=== PATIENT | female | born 1965 | race Caucasian/White ===

== ENCOUNTER → 2024-03-11 16:47 | Outpatient (REF) | payer BC, SELFPAY | LOC: HWWDC 16:47 | PROVIDERS: ATTENDING PHYSICIAN Obstetrics & Gynecology Gynecology; FAMILY PHYSICIAN Family Medicine | DX: Z12.31 Encounter for screening mammogram for malignant neoplasm of breast (principal) | CPT/HCPCS: 77063; 77067 ==

== ENCOUNTER → 2024-10-09 14:18 | Outpatient (REF) | payer BC, SELFPAY | LOC: HWRAD 14:18 | PROVIDERS: ATTENDING PHYSICIAN Internal Medicine Rheumatology; FAMILY PHYSICIAN Family Medicine | DX: M81.0 Age-related osteoporosis without current pathological fracture (principal); Z13.820 Encounter for screening for osteoporosis | CPT/HCPCS: 77080 ==

== ENCOUNTER → 2025-02-14 16:48 | Outpatient (REF) | payer OTHER, SELFPAY | LOC: RAD 16:48 | PROVIDERS: ATTENDING PHYSICIAN Family Medicine | DX: R10.84 Generalized abdominal pain (principal); R11.0 Nausea; T88.7XXA Unspecified adverse effect of drug or medicament, initial encounter; R17 Unspecified jaundice | CPT/HCPCS: 76700 ==

== ENCOUNTER → 2025-02-21 19:43 | Outpatient (REF) | payer OTHER, SELFPAY | LOC: MRI 3T 19:43 | PROVIDERS: ATTENDING PHYSICIAN Family Medicine | DX: R17 Unspecified jaundice (principal); K76.9 Liver disease, unspecified | CPT/HCPCS: 74183; A9581 ==

== ENCOUNTER 2025-02-25 20:36 | Inpatient (IN) | payer OTHER, SELFPAY ==
[2025-02-25] VITALS (8 sets, daily range): BP systolic 123–166; BP diastolic 24–95; BMI 33.2; BMI 32.7
[2025-02-25 17:05] LABS: % Basophils 0.2 % (0-2); % Eosinophils 0.2 % (0-6); % Immature Granulocytes 1.4 % (0-0.5); % Monocytes 7.4 % (1.7-9.3); % Neutrophils 84.8 % (42.2-75.2); Absolute Immature Granulocytes 0.2 10^3/uL (0-0.05); Absolute Lymphocytes 0.8 10^3/uL (1.2-3.4); Absolute Neutrophils 11.4 10^3/uL (1.4-6.5); Hematocrit 38.3 % (37.0-47.0); Hemoglobin 12.9 g/dL (12.0-16.0); Mean Corp Hgb Conc. 33.7 g/dL (33.0-37.0); Mean Corpuscular Hgb 31.2 pg (27.0-31.0); Mean Corpuscular Volume 92.5 fL (81.0-99.0); Mean Platelet Volume 10.4 fL (7.4-10.4); Nucleated Red Blood Cells % 0 %; Platelet Count 159 10^3/uL (130-400); Red Blood Cell Count 4.14 10^6/uL (4.20-5.40); Red Cell Dist. Width 15.9 % (11.5-14.5); Urine Albumin 2+ (Neg - Trace); Urine Bilirubin 3+ (Negative); Urine Character Clear (Clear); Urine Color Yellow; Urine Glucose Negative (Negative); Urine Ketone Negative (Negative); Urine Leukocyte 1+ (Negative); Urine Nitrite Negative (Negative); Urine Occult Blood Negative (Negative); Urine Urobilinogen 3+ (Neg - 1+); White Blood Cell Count 13.4 10^3/uL (4.8-10.8)
[2025-02-25 17:12] LABS: INR 1.33; PT 16.8 Sec (11.4-14.6)
[2025-02-25 17:13] LABS: APTT 26.6 Sec (23.4-35.0)
[2025-02-25 17:22] LABS: Urine Mucus Few; Urine Red Blood Cell 0-2 /HPF (0-2); Urine Squamous Cell >30 /LPF (Few)
[2025-02-25 17:23] LABS: Urine Bacteria Many (Negative)
[2025-02-25 17:24] LABS: ALT (SGPT) 71 U/L (0-35); AST (SGOT) 139 U/L (14-36); Albumin 2.9 g/dl (3.5-5.0); Alkaline Phosphatase 483 U/L (38-126); Amylase 47 U/L (30-110); Blood Urea Nitrogen 34 mg/dl (7-17); Calcium 8.7 mg/dl (8.4-10.2); Carbon Dioxide 28 mmol/L (22-30); Chloride 99 mmol/L (98-107); Estimated Creatinine Clearance 71 ml/min; Glucose 236 mg/dl (70-99); Lipase 112 U/L (23-300); Potassium 4.8 mmol/L (3.5-5.1); Sodium 134 mmol/L (135-145); Total Bilirubin 13.9 mg/dl (0.2-1.3); Total Protein 6.3 g/dl (6.3-8.2); eGFR > 60.00
--- NOTE | 2025-02-25 18:08 | ED.GENMED ---
Addendum entered and electronically signed by Inderjit Anguiano DO 02/25/25 19:32:
Patient updated on likely diagnosis, PCP updated reviewed at bedside with hospitalist report from radiologist reviewed
Original Note:
History of Present Illness
General
Chief Complaint: Abdominal Pain
Source: patient and records
Exam Limitations: none
Time Seen by Provider: 02/25/25 16:44
History of Present Illness
History of Present Illness:
59-year-old female RA diabetes sent by PCP for jaundice had ultrasound and MRI which are abnormal apparently needs a CT scan sent to the ER for evaluation she has some gnawing upper abdominal pain mild nausea no weight loss that she is gaining some
weight she has lower extremity edema
Past History
Past History
ED Past Surgical History: Appendectomy, Cholecystectomy and Gynecological
Social History
Tobacco: Non-smoker
Alcohol: None
Drug: None
Personal:
Living: with family
Employment: Employed
Review of Systems
Review of Systems
All Other Systems: Not applicable
Constitutional: Reports fatigue; Denies fever or weight loss
EENT: Reports no symptoms
Respiratory: Reports no symptoms
Cardiac: Reports no symptoms
ABD/GI: Reports abdominal pain and nausea
: Reports no symptoms
Musculoskeletal: Reports no symptoms
Skin: Reports other (Jaundice)
Neurological: Reports weakness
Phy Exam
Physical Exam
Physical Exam:
Physical Exam
General: no apparent distress, not acutely ill
Neck: Scleral icterus
Heart: s1/s2 regular rate and rhythm, no murmur. equal radial pulses.
Lungs: no acute respiratory distress. clear bilaterally
Abdomen: Mild tenderness in the epigastrium
Neuro: alert and oriented. no focal neurological deficits
Skin: Yellow
Psychiatric: well kept. interactive and cooperative
Extremities: Edema is
Course
Orders/Labs/Results
Orders:
Orders
04/01/25 16:44
CT Abd/pelvis W Iv Cont Urgent
Comment:
Reason For Exam: jaundice
02/25/25 16:56
Amylase Urgent
Complete Blood Count/With Diff Urgent
Comprehensive Metabolic Panel Urgent
Lipase Urgent
PTT Urgent
Prothrombin Time Urgent
Urinalysis Reflex To Culture Urgent
Date Specimen was Collected: 02/25/25
Time Specimen was Collected: 16:50
Urine Microscopic Reflex Cult Urgent
Urine Culture Urgent
JOANN Source: U
Specimen Description:
Date Specimen was Collected: 02/25/25
Time Specimen was Collected: 16:50
Abnormal Lab Results
02/25/25
16:56
WBC 13.4 H 10^3/uL
(4.8-10.8)
RBC 4.14 L 10^6/uL
(4.20-5.40)
MCH 31.2 H pg
(27.0-31.0)
RDW 15.9 H %
(11.5-14.5)
Abs Immat Gran (auto) 0.2 H 10^3/uL
(0-0.05)
Absolute Neuts (auto) 11.4 H 10^3/uL
(1.4-6.5)
Absolute Lymphs (auto) 0.8 L 10^3/uL
(1.2-3.4)
Absolute Monos (auto) 1.0 H 10^3/uL
(0.1-0.6)
Immature Gran % 1.4 H %
(0-0.5)
Neutrophils % 84.8 H %
(42.2-75.2)
Lymphocytes % 6.0 L %
(20.5-51.1)
PT 16.8 H Sec
(11.4-14.6)
Sodium 134 L mmol/L
(135-145)
BUN 34 H mg/dl
(7-17)
Glucose 236 H mg/dl
(70-99)
Total Bilirubin 13.9 H mg/dl
(0.2-1.3)
AST 139 H U/L
(14-36)
ALT 71 H U/L
(0-35)
Alkaline Phosphatase 483 H U/L
(38-126)
Albumin 2.9 L g/dl
(3.5-5.0)
Urine Bilirubin 3+ A
(Negative)
Urine Urobilinogen 3+ A
(Neg - 1+)
Leukocyte Esterase Rfl 1+ A
(Negative)
Urine Bacteria (Reflex) Many A
(Negative)
Urine Albumin (Reflex) 2+ A
(Neg - Trace)
02/25/25 16:56
02/25/25 16:56
Vital Signs
Initial and Last Documented VS:
Initial Vital Signs
Temp Pulse Resp BP Pulse Ox
98.4 F 94 20 166/91 100
02/25/25 15:58 02/25/25 15:58 02/25/25 15:58 02/25/25 15:58 02/25/25 15:58
Last Documented Vital Signs
Temp Pulse Resp BP Pulse Ox
98.4 F 93 20 124/75 100
02/25/25 15:58 02/25/25 17:30 02/25/25 17:30 02/25/25 17:00 02/25/25 17:30
MDM/Problems Addressed
Differential Diagnosis Includes:
Obstructive jaundice mass malignancy hepatitis
MDM/Problems Addressed:
Jaundice
Chronic conditions affecting care: Previous abdomnial surgery
Acute Exacerbation and/or Progression of Chronic Illness: Previous abdomnial surgery
*Radiology
Radiology exam reviewed: preliminary read by ED provider
*Pulse Oximetry
Patient hypoxic: no
*Critical Care Note
Total Time (30-74mins, 75-104mins- exclusive of procedures): Not Applicable
Data Reviewed
Review of Other/Old Records Reveals: Labs and Radiology Studies
Source: patient
ED Attending Note
-
Portions of this chart may have been created with voice recognition software.� Occasional wrong word or��sound alike� substitutions may have occurred due to the inherent limitations of voice recognition software.
Discharge Plan
Departure
Referrals:
Kanu Hicks, DO [Family Provider] -
Interventions
Interventions:
*Risk Screen - Suicide Last Done: 02/25/25 15:58
*Neglect/Abuse Screening Last Done: 02/25/25 15:58
*ED COVID-19 Vaccine History Last Done: 02/25/25 15:58
UC-Nwpfmi-Yzblzykfmq Assessment Last Done: 02/25/25 17:11
ED- Cardiac Assessment Last Done: 02/25/25 17:11
ED- Pulmonary Assessment Last Done: 02/25/25 17:11
ED-Skin Assessment Last Done: 02/25/25 17:11
Discharge Date and Time
Print Language: MALAGASY
--- NOTE | 2025-02-25 19:33 | HPS.HSE ---
Addendum entered and electronically signed by Dylan Vega MD 02/26/25 06:51:
Depending on what GI says, a diagnostic paracentesis may be pursued for cytology but non-urgent as no signs of acute infection.
Original Note:
Family Physician
-
Family Physician: Kanu Hicks
Chief Complaint
-
Bilateral lower extremity edema
History of Present Illness
This is a 59-year-old female with past medical history of hypertension and rheumatoid arthritis who presents to the emergency department with complaint of bilateral lower extremity edema.
Patient has been having pain and jaundice for about a month now. She has had workup recently with ultrasound and an MRI concerning for intrahepatic mass possibly episode of carcinoma versus cholangiocarcinoma with mass effect obstruction of the
portal vein. She denies abdominal pain nausea or vomiting. She denies any pruritus. She denies fevers or chills. She reports that she suddenly developed swelling in the lower extremities bilaterally over the last 3 to 4 days. Is not associated
with any pain or tingling. She denies any shortness of breath. She denies any orthopnea or PND. She denies any prior history of congestive heart failure.
In the emergency department she was afebrile, blood pressure was normal at 124/50 with a pulse of 80 and she was satting 100% on room air. She does have a white count of 13.4, hemoglobin and platelets were normal. Electrolytes were normal. T
bilirubin is 13, AST 139 ALT 71 and alk phos of 480.
The findings on the CT scan are as follows:
Redemonstration of the known infiltrative mass within the central liver measuring approximately 5.9 x 4.5 cm. There is an additional 2.6 cm lesion in the inferior left hepatic lobe.There is associated occlusion of the left portal vein with resultant
heterogeneous appearance of the liver, likely extensive edema. Findings are overall similar to recent prior MRI and concerning for malignancy such as hepatocellular carcinoma or cholangiocarcinoma. Metastasis are also possibility.
Splenomegaly with small volume ascites, likely sequelae of portal hypertension.
There is mild wall thickening throughout the small bowel which may represent an element of congestive arthropathy or secondary to the ascites.
Medical History
Past Medical History
Past Medical History: Reports HTN
Past Surgical History: Reports None
Social History
Tobacco: Non-smoker
Alcohol: None
Drug: None
Employment: Not Employed
Family History
Family History: Not pertinent
Allergies / Home Medications
Allergies reflects when Allergies were last updated in [facility].
Home Medications with original date entered in [facility]
Allergy/Medication List:
Allergies
Allergy/AdvReac Type Severity Reaction Status Date / Time
No Known Allergies Allergy Verified 02/25/25 16:05
Home Medications
cholecalciferol (vitamin D3) 50 mcg (2,000 unit) tablet (Vitamin D3) 50 mcg PO DAILY 02/25/25
etanercept 50 mg/mL (1 mL) subcutaneous pen injector (Enbrel SureClick) 50 mg SC ZIMMERMAN 02/25/25
losartan 50 mg tablet 50 mg PO DAILY 02/25/25
therapeutic multivitamin 1 tab PO DAILY 02/25/25
Review of Systems
-
History Source: Patient
Constitutional: Reports No Symptoms, See HPI, Not Done and Fever
EENT: Reports No Symptoms
Respiratory: Reports No Symptoms
Cardiac: Reports No Symptoms
Abdomen/GI: Reports Nausea
: Reports No Symptoms
Musculoskeletal: Reports Edema
Skin: Reports No Symptoms
Neurological: Reports No Symptoms
Endocrine: Reports No Symptoms
Hematologic/Lymphatic: Reports No Symptoms
Psych: Reports No Symptoms
Physical Exam
Vital Signs
Vital Signs
Temp Pulse Resp BP Pulse Ox
98.6 F 89 20 124/52 100
02/25/25 18:27 02/25/25 19:00 02/25/25 19:00 02/25/25 19:00 02/25/25 19:00
Physical Exam
General: Well Developed, No Apparent Distress and Comfortable
HEENT: NormoCephalic, Anicteric, Moist mucous membranes, Atraumatic and PERRLA
Respiratory: Clear
Cardiac: S1/S2 and Regular Rhythm
Breast: Deferred by me
GI: Soft, Non Tender, Non Distended and Normal Bowel Sounds
Rectal: Deferred by Provider
Musculoskeletal: No Clubbing, No Cyanosis, Edema, Left Lower Extremity and Edema, Right Lower Extremity
Skin: Warm
Neuro: AO x 3 and Nonfocal/grossly intact
Hematologic/Lymphatic: No Lymphadenopathy
Psych: Calm
Laboratory Results
-
02/25/25 16:56
02/25/25 16:56
Laboratory Results
PT 16.8 Sec (11.4-14.6) H 02/25/25 16:56
INR 1.33 02/25/25 16:56
APTT 26.6 Sec (23.4-35.0) 02/25/25 16:56
Total Bilirubin 13.9 mg/dl (0.2-1.3) H 02/25/25 16:56
AST 139 U/L (14-36) H 02/25/25 16:56
ALT 71 U/L (0-35) H 02/25/25 16:56
Alkaline Phosphatase 483 U/L (38-126) H 02/25/25 16:56
Lipase 112 U/L (23-300) 02/25/25 16:56
Data Reviewed
-
CT Scan: Report Reviewed by me
Ultrasound: Report Reviewed by me
MRI: Report Reviewed by me
Lab Data: Labs Reviewed by me
Old Records: Reviewed
Impression/Plan
-
IMPRESSION:
59-year-old with a few weeks of painless jaundice coming in with acute bilateral lower extremity edema in the setting of workup for the obstructive jaundice showing hepatic mass worrisome for a malignant process. Suspect the obstructive jaundice is
indeed secondary to the hepatic lesions which could be primary liver cancer or metastasis or cholangiocarcinoma. It appears to be mass effect with vascular compression involving the portal vein with extrinsic compression and subsequent portal
hypertension, ascites and splenomegaly. The portal hypertension and of itself will not be enough to explain the bilateral lower extremity edema. Cannot rule out for the compressive effect on IVC hepatic vein. She has no signs of acute infection.
PLAN:
1. Hepatic mass
- admit to med surg
- GI consultation
- check AFB, CEA and Ca19-9, total protein and inr
- diet as tolerated for now
- trend lfts
- may need EGD/EUS, GI consultation
2. Bilateral lower extremity edema - Portal hypertension and ascites but no cirrhosis suggests portal vein extrinsic obstruction which was seen on CT. 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
- check suha le u/s
- check bnp
- echo
- if no evidence of venous compression, will start lasix 20mg daily
- treat underlying malignancy
3. HTN
- continue losartan for now
DVT PPX - lovenox sq
Code status - Full Code
[2025-02-25 19:57] LABS: Direct Bilirubin 11.1 mg/dl (0.0-0.4)
[2025-02-25 21:51] LABS: Glucose - Point of Care 147 mg/dl (70-99)
--- NOTE | 2025-02-25 22:30 | W.PN.UPDATE ---
Update Note
Progress Note Update
sliding scale and hgba1c in am
--- NOTE | 2025-02-26 00:43 | PTCARENOTE ---
Patient transferred from the ED. Patient's gait was steady while ambulating. Patient's vitals were stable. Patient stated she was not experiencing any pain. Patient went down for an Ultra Sound of her left leg. Patient did state she was a diabetic.
She does not take any medication to control the issue. It is controlled by diet. [employer]INTENANCE WORK[employer] was notified. MAINTENAN[employer] WORKER [employer] ordered sliding scale insulin and PRN meds. A1C was ordered for the morning. Patient's call mehta is with in reach. Plan of care is ongoing.
[2025-02-26 05:22] VITALS: BMI 32.7
[2025-02-26 06:40] LABS: INR 1.34; PT 16.9 Sec (11.4-14.6)
[2025-02-26 06:49] LABS: Ammonia 26 umol/L (9-30)
[2025-02-26 07:17] LABS: Hematocrit 34.4 % (37.0-47.0); Hemoglobin 12.3 g/dL (12.0-16.0); Mean Corp Hgb Conc. 35.8 g/dL (33.0-37.0); Mean Corpuscular Hgb 31.8 pg (27.0-31.0); Mean Corpuscular Volume 88.9 fL (81.0-99.0); Mean Platelet Volume 10.8 fL (7.4-10.4); Platelet Count 125 10^3/uL (130-400); Red Blood Cell Count 3.87 10^6/uL (4.20-5.40); Red Cell Dist. Width 15.7 % (11.5-14.5); White Blood Cell Count 12.6 10^3/uL (4.8-10.8)
[2025-02-26 07:23] VITALS: BP 143/80
[2025-02-26] MEDS: COZAAR 50 MG PO (07:32)
[2025-02-26 07:46] LABS: Glucose - Point of Care 178 mg/dl (70-99)
[2025-02-26] MEDS: NOVOLOG FLEXPEN-LOW RESISTANCE 1 UNITS SC (08:26)
--- NOTE | 2025-02-26 09:10 | CON.GI ---
Addendum entered and electronically signed by Marizol Maldonado DO 02/26/25 10:55:
The patient was seen and examined by me independently in collaboration with the nurse practitioner.
Past medical history/social history/medications/allergies/family history reviewed.
Lab data and imaging data reviewed.
Rianna Rock is a 59-year-old female past medical history of diabetes and rheumatoid arthritis who presents with 1 month of painless jaundice and new onset lower extremity edema and ascites. Patient reports being in her normal state of
month prior to a month ago, started noticing dark urine and brandie colored stools. Her primary care provider has been working this up over the last few weeks, found to have elevated liver enzymes and concern for liver mass, HCC versus
cholangiocarcinoma with occlusion of the left portal vein and new ascites.
Reviewed imaging with Dr. Munoz-- unfortunately, there is no evidence of biliary ductal dilation on imaging, hyperbilirubinemia is 2/2 infiltrative mass/tumor burden, so ERCP is not an option. Can discuss with IR if there is anything to target for
PTBD, however, suspect it will be same scenario.
Recommendations:
-IR for paracentesis, r/o malignant ascites
-once fluid has been drained, will see if IR can then plan to percutaneous biopsy vs. transjugular approach targeting central mass
Original Note:
Consultation
-
Date/Time Consultation Requested: 02/25/25 2200
Date/Time Consultation Performed: 02/26/25 0910
Requesting Provider: kendra Rodriguez MD
Performing Provider: DAI Douglas, Leta Maldonado DO
Reason for Consultation: LE edema, jaundice
Medical History
Chief Complaint / HPI
History of Present Illness:
Pt is a 59yo with hx HTN, hypercholesterolemia, NIDDM (recently stopped Rybelsus with onset of symptoms) , RA (prior Leflunomide stopped 1 month ago with onset of symptoms and current Enbrel) with onset nausea/abdominal pain followed by jaundice
then lower ext edema. . She had work up with PCP and sent to with abnormal imaging. 02/14 US with multiple liver lesions concern for mets. main and right portal vein patent, left portal vein flow not clear. thrombosis not excluded. She
proceeded for MRI abdomen with hypoenhancement of central liver concern for malignant process with compression of left portal vein with no flow. celiac chain adenopathy and 3 small hypervascular foci right hepatic lobe, hemangioma, arterioportal
shunts or HCC, no duct dilation. Pt also completed CT on admission with concern for infiltrative liver mass with occlusion of left portal vein, splenomegaly, small volume ascites with portal HTN, SB thickening with congestive arthropathy or
ascites. Findings are overall similar to recent prior MRI and concerning for malignancy such as hepatocellular carcinoma or cholangiocarcinoma. Metastasis are also possibility. On admission labs notable for WBC 12.6, hbg 12.3, platelets 125, INR
1.34, Na 133,creat 0.6, glucose 192, bili 15,6, d bili 13, AST 167, ALT 81, alk phos 495 albumin 3.1. Tumor marker- AFP, CEA, and TSH pending.
In review with patient she admits to nausea and some upper abdominal pain. She denies odynophagia, dysphagia, GERD, vomiting, diarrhea, constipation or rectal bleeding. No prior EGD or colonoscopy. neg Cologuard 2 years ago. No hx
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
02/14/25 OP labs with WBC 9.6, hbg 13.2, hct 39.2, platelets 152, glucose 162, BUN 12, creat 0.56, Na 140, K 4.7, cl 103, Co2 17, albumin 3,6, bili 5,6, AST 94, ALT 40, alk phos 417,Amylase 52, lipase 25 - liver serology requested but not
completed insufficient specimen
Past Medical History
Past Medical History: HTN, Hypercholesterolemia, NIDDM and Other (RA)
Social History
Tobacco: Non-Smoker
Alcohol: None
Drug: None
Personal:
Living: With Family
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
Family History
Family History: Other (no family hx liver issues, GI cancers )
Allergies / Home Medications
Allergy/AdvReac Type Severity Reaction Status Date / Time
No Known Allergies Allergy Verified 02/25/25 16:05
�Medication �Instructions �Recorded
cholecalciferol (vitamin D3) 50 50 mcg PO DAILY Supplement 02/25/25
mcg (2,000 unit) tablet (Vitamin
D3)
etanercept 50 mg/mL (1 mL) 50 mg SC ZIMMERMAN TNF INH 02/25/25
subcutaneous pen injector (Enbrel
SureClick)
losartan 50 mg tablet 50 mg PO DAILY Blood Pressure 02/25/25
therapeutic multivitamin 1 tab PO DAILY Supplement 02/25/25
Review of Systems
-
History Source: Patient
Constitutional: Reports Other (wt changes -- 40 lbs loss with Rybelsus then recent gain with LE edema )
EENT: Reports No Symptoms
Respiratory: Reports No Symptoms
Abdomen/GI: Reports Abdominal Pain, Nausea and Other (brandie colored stools )
: Reports Dark Urine
Musculoskeletal: Reports Joint Pain (with hx RA)
Skin: Reports Itching and Other (change in skin color )
Neurological: Reports No Symptoms
Endocrine: Reports No Symptoms
Hematologic/Lymphatic: Reports No Symptoms
Vital Signs
Temp Pulse Resp BP Pulse Ox
98.0 F 81 16 143/80 99
02/26/25 07:23 02/26/25 07:32 02/26/25 07:23 02/26/25 07:32 02/26/25 07:23
Physical Exam
Exam
General: Well Developed, Well Nourished and No Apparent Distress
HEENT: Other (marked jaundice with icteric sclera )
Respiratory: Clear
Cardiac: Regular Rhythm and Peripheral Edema
GI: Soft, Non Tender (upper abdominal fullness mid abdomen ) and Non Distended
Musculoskeletal: No Clubbing and No Cyanosis
Skin: Warm, Dry and Other (marked LE edema )
Neuro: Awake, Alert and AO x 3
Psych: Calm
Results
WBC 12.6 10^3/uL (4.8-10.8) H 02/26/25 06:13
Hgb 12.3 g/dL (12.0-16.0) 02/26/25 06:13
Hct 34.4 % (37.0-47.0) L 02/26/25 06:13
MCV 88.9 fL (81.0-99.0) 02/26/25 06:13
Plt Count 125 10^3/uL (130-400) L D 02/26/25 06:13
Absolute Neuts (auto) 11.4 10^3/uL (1.4-6.5) H 02/25/25 16:56
PT 16.9 Sec (11.4-14.6) H 02/26/25 06:13
INR 1.34 02/26/25 06:13
APTT 26.6 Sec (23.4-35.0) 02/25/25 16:56
Sodium 134 mmol/L (135-145) L 02/25/25 16:56
Potassium 4.8 mmol/L (3.5-5.1) 02/25/25 16:56
Chloride 99 mmol/L (98-107) 02/25/25 16:56
Carbon Dioxide 28 mmol/L (22-30) 02/25/25 16:56
BUN 34 mg/dl (7-17) H 02/25/25 16:56
Creatinine 0.9 mg/dL (0.6-1.0) 02/25/25 16:56
Calcium 8.7 mg/dl (8.4-10.2) 02/25/25 16:56
Total Bilirubin 13.9 mg/dl (0.2-1.3) H 02/25/25 16:56
AST 139 U/L (14-36) H 02/25/25 16:56
ALT 71 U/L (0-35) H 02/25/25 16:56
Alkaline Phosphatase 483 U/L (38-126) H 02/25/25 16:56
Amylase 47 U/L (30-110) 02/25/25 16:56
Lipase 112 U/L (23-300) 02/25/25 16:56
Diagnostic Image Results:
02/14/25 US abdomen
Heterogeneous liver parenchyma with multiple questioned intraparenchymal liver lesions. Findings raise the possibility for hepatic metastatic disease. Heterogeneous echotexture secondary to chronic hepatocellular dysfunction would be an alternative
consideration. Recommend a follow-up abdominal MRI without and with intravenous contrast for further evaluation.
The main portal vein and right portal vein are patent. Flow is not clearly identified in the left portal vein. While this could be technique related or artifactual, thrombus is not excluded and further evaluation on follow-up cross-sectional imaging
is recommended.
02/21/25 MR abdomen with and without
Poorly defined relatively hypoenhancing region in the central portion of liver; this extends into the upper portion of the caudate lobe. This is worrisome for a malignant process. This abnormality may be causing extrinsic compression of the left
portal vein, which contains no flow. The left portal vein occlusion results in extensive edema in the left hepatic lobe as well as findings of portal venous hypertension. Dynamic CT imaging of the abdomen recommended for further evaluation of the
suspected hepatic mass.
Mild celiac chain adenopathy
3 small hypervascular foci in the right hepatic lobe. Possible etiologies include flash filling benign hemangiomas, arterioportal shunts, or hepatocellular carcinoma. Please correlate with serum alpha-fetoprotein value. Consider follow-up MRI in 6
months to reevaluate these foci.
No biliary ductal dilatation identified
02/25/25 CT Abd/pelvis W Iv Cont
Redemonstration of the known infiltrative mass within the central liver measuring approximately 5.9 x 4.5 cm. There is an additional 2.6 cm lesion in the inferior left hepatic lobe.There is associated occlusion of the left portal vein with resultant
heterogeneous appearance of the liver, likely extensive edema. Findings are overall similar to recent prior MRI and concerning for malignancy such as hepatocellular carcinoma or cholangiocarcinoma. Metastasis are also possibility.
Splenomegaly with small volume ascites, likely sequelae of portal hypertension.
There is mild wall thickening throughout the small bowel which may represent an element of congestive arthropathy or secondary to the ascites.
02/25/25 US Periph Venous LOWER Ext LT
No sonographic evidence for LEFT lower extremity deep venous thrombosis.
Prior GI Procedures:
EGD: none
Colonoscopy: none
neg cologuard 2 years ago
Assessment / Plan
-
Pt is a 59yo with hx HTN, hypercholesterolemia, NIDDM (recently stopped Rybelsus with onset of symptoms) , RA (prior Leflunomide stopped 1 month ago with onset of symptoms and current Enbrel) with onset nausea/abdominal pain followed by jaundice
then lower ext edema. She had work up with PCP and sent to with abnormal imaging. 02/14 US with multiple liver lesions concern for mets. main and right portal vein patent, left portal vein flow not clear. thrombosis not excluded. She proceeded
for MRI abdomen with hypoenhancement of central liver concern for malignant process with compression of left portal vein with no flow. celiac chain adenopathy and 3 small hypervascular foci right hepatic lobe, hemangioma, arterioportal shunts or
HCC, no duct dilation. Pt also completed CT on admission with concern for infiltrative liver mass with occlusion of left portal vein, splenomegaly, small volume ascites with portal HTN, SB thickening with congestive arthropathy or ascites.
Findings are overall similar to recent prior MRI and concerning for malignancy such as hepatocellular carcinoma or cholangiocarcinoma. Metastasis are also possibility. On admission labs notable for WBC 12.6, hbg 12.3, platelets 125, INR 1.34, Na
133,creat 0.6, glucose 192, bili 15.6, d bili 13, AST 167, ALT 81, alk phos 495 albumin 3.1. Tumor marker- AFP, CEA, and TSH pending.
-new onset of abdominal pain, nausea, jaundice then LE swelling over last month
-elevated LFT's
-abnormal imaging with small amount ascites, concern for left portal vein occlusion, liver mass with possible HCC, or cholangio with mets
-LE swelling
-hypoalbuminemia
other med problems:
-NIDDM with recent Rybelsus use
-RA with recent prior Leflunomide stopped 1 month ago with onset of symptoms and current Enbrel use
-HTN
-hypercholesterolemia
PLAN:
etiology of symptoms related to infiltrative process such as HCC/cholangio with concern for left portal vein occlusion vs other
pt noted with recent med changes- stopped Rybelsus and Leflunomide(hx LFT elevation/rare liver injury) with onset of symptoms
I reviewed with radiology for para- small volume may be possible
I also reviewed with radiology for liver biopsy-- await AFP first, would need ascites drained prior to perc bx, central mass would be amendable to transjugular biopsy.
will discuss options with Dr. Munoz and Dr. Maldonado if EUS/bx is options
trend labs
hepatitis C pending, add hepatitis B serology
AFP, CEA pending
cont diet for now pending plan
-
-
Thank you for consultation and allowing me to participate in the patient's care. Please call the forest and conservation worker GI physician during the after hours with any questions or concerns.
[2025-02-26 09:57] LABS: ALT (SGPT) 81 U/L (0-35); AST (SGOT) 167 U/L (14-36); Albumin 3.1 g/dl (3.5-5.0); Alkaline Phosphatase 495 U/L (38-126); Blood Urea Nitrogen 32 mg/dl (7-17); Calcium 8.7 mg/dl (8.4-10.2); Carbon Dioxide 24 mmol/L (22-30); Chloride 100 mmol/L (98-107); Estimated Creatinine Clearance 106 ml/min; Glucose 192 mg/dl (70-99); Magnesium 2.2 mg/dl (1.6-2.3); NT-proBNP 327 pg/ml; Potassium 4.5 mmol/L (3.5-5.1); Sodium 133 mmol/L (135-145); Total Bilirubin 15.6 mg/dl (0.2-1.3); Total Protein 6.6 g/dl (6.3-8.2); eGFR > 60.00
[2025-02-26 10:13] LABS: Glycohemoglobin (HgbA1c) 5.5 % (4.0-5.6)
[2025-02-26 10:50] LABS: AFP Male/Tumor Marker 90.9 ng/ml; TSH 3.36 uIU/ml (0.47-4.68)
[2025-02-26 11:26] LABS: Glucose - Point of Care 306 mg/dl (70-99)
--- NOTE | 2025-02-26 12:25 | W.PN.UPDATE ---
Addendum entered and electronically signed by Marizol Maldonado DO 02/26/25 13:47:
Plan as per below. GI will sign off. Please notify us if IR is unable to obtain biopsy to confirm dx.
Original Note:
Update Note
Progress Note Update
updated patient, family and Dr. Carrillo. Plan for para and percutaneous biopsy 02/27 with IR as reviewed with Dr. Goins. If unable to biopsy can attempt endoscopy biopsy later in week as schedule allows. Consider oncology evaluation. All
questions answered.
[2025-02-26] MEDS: NOVOLOG FLEXPEN-LOW RESISTANCE 4 UNITS SC (12:32)
--- NOTE | 2025-02-26 12:52 | W.PN.HOSP.TC ---
Today's Communication/Plan
-
Paracentesis and liver biopsy on 02/27
N.p.o. after midnight
Trend LFTs, coags, temperature curve
Encourage leg elevation
Oncology consult
Assessment / Plan
Assessment / Plan
#Obstructive jaundice
#Hepatic mass
-Concern for neoplastic biliary obstruction; possibly HCC, cholangiocarcinoma, pancreatic cancer, colon cancer
-Was started on leflunomide for her RA, which has association with acute liver failure though do not suspect she has KENYA now
-Presented with scleral icterus and jaundice; T. bili 15.6, T. bili 13, ALP 495, AST 161, ALT 81, INR 1.34, albumin 3.1
-Had recent outpatient ultrasound and MRCP that demonstrated concerning findings for obstruction/malignancy
-CT A/P here showed infiltrative mass in the central liver, 5.9 x 4.5 cm with additional lesion in the inferior left hepatic lobe, splenomegaly, small ascites
-Tumor markers including AFP, CEA, CA 19-9 were sent off after admission
-Afebrile, hemodynamically stable; lower concern for cholangitis
Plan
-Planning for paracentesis and percutaneous biopsy on 02/27 with IR (if unsuccessful attempt EUS Monday)
-Follow-up AFP, CEA, CA 19-9 levels
-Trend LFTs, coags, CBC, temperature curve
-Oncology consult
#Bilateral lower extremity edema
#Left portal vein compression
-Has bilateral lower extremity edema secondary to extrinsic compression of left portal vein by liver mass
-Lower extremity ultrasound negative for DVTs; echocardiogram without signs of cardiomyopathy
-Suspect that diuresis would not significantly improve her edema at this point
-Will need primary intervention into her liver mass once etiology is known
-Encourage compression stockings and leg elevation while resting
#Rheumatoid arthritis
-Home regimen includes etanercept; per GI was recently switched to leflunomide
-No known associations such as CAD or interstitial lung disease
-No evidence of RA flare at this time
#Primary hypertension
-No known history of hypertensive systemic disease
-Home regimen includes losartan 50 mg daily
-Blood pressure currently adequate
-Will continue to monitor
DVT prophylaxis: SCDs, avoid chemical AC with procedures planned 02/27
Diet: Regular, n.p.o. after midnight
CODE STATUS: Full code
Anticipated Discharge: > 48 hours
Subjective/Interval History
-
Date of Service: February 26, 2025
Objective Data
-
Labs:
Laboratory Results
02/26/25 02/26/25
06:13 08:21
WBC 12.6 H
Hgb 12.3
Hct 34.4 L
Plt Count 125 L D
PT 16.9 H
INR 1.34
Sodium 133 L
Potassium 4.5
Chloride 100
Carbon Dioxide 24
BUN 32 H
Creatinine 0.6
Glucose 192 H
Calcium 8.7
Total Bilirubin 15.6 H
AST 167 H
ALT 81 H
Alkaline Phosphatase 495 H
Vital Signs:
Vital Signs
Temp Pulse Resp BP Pulse Ox
98.0 F 81 16 143/80 99
02/26/25 07:23 02/26/25 07:32 02/26/25 07:23 02/26/25 07:32 02/26/25 07:23
I&O
02/25/25 02/26/25 02/27/25
06:59 06:59 06:59
Intake Total 720 / 720
Balance 720 / 720
[2025-02-26 12:58] LABS: CEA 3.86 ng/ml
--- NOTE | 2025-02-26 13:22 | CM ---
Patient seen at bedside
IA completed
Lives in 2 story home with , 1 step to enter, flight to second floor
Denies DME
PLOF: Independent
Denies VN/REHAB
PCP: Kanu Hicks
Pharmacy: [address], [place]
PLAN: home, currently no needs
[2025-02-26 14:51] VITALS: BP 137/86
[2025-02-26 16:30] LABS: Glucose - Point of Care 219 mg/dl (70-99)
[2025-02-26] MEDS: NOVOLOG FLEXPEN-LOW RESISTANCE 2 UNITS SC (18:12)
[2025-02-26 21:37] LABS: Glucose - Point of Care 191 mg/dl (70-99)
[2025-02-26 23:00] VITALS: BP 103/76
[2025-02-27 07:26] VITALS: BP 113/70
[2025-02-27] MEDS: COZAAR 50 MG PO (08:04)
[2025-02-27 08:05] LABS: INR 1.36; PT 17.3 Sec (11.4-14.6)
[2025-02-27 08:06] LABS: APTT 29.7 Sec (23.4-35.0)
[2025-02-27 08:29] LABS: % Basophils 0.5 % (0-2); % Eosinophils 0.9 % (0-6); % Immature Granulocytes 1.9 % (0-0.5); % Lymphocytes 8.4 % (20.5-51.1); % Monocytes 7.1 % (1.7-9.3); % Neutrophils 81.2 % (42.2-75.2); Absolute Basophils 0.1 10^3/uL (0-0.2); Absolute Eosinophils 0.1 10^3/uL (0-0.7); Absolute Immature Granulocytes 0.3 10^3/uL (0-0.05); Absolute Lymphocytes 1.4 10^3/uL (1.2-3.4); Absolute Monocytes 1.1 10^3/uL (0.1-0.6); Hematocrit 40.8 % (37.0-47.0); Hemoglobin 14.3 g/dL (12.0-16.0); Mean Corpuscular Hgb 32.1 pg (27.0-31.0); Mean Corpuscular Volume 91.7 fL (81.0-99.0); Mean Platelet Volume 10.9 fL (7.4-10.4); Nucleated Red Blood Cells % 0 %; Platelet Count 169 10^3/uL (130-400); Red Blood Cell Count 4.45 10^6/uL (4.20-5.40); Red Cell Dist. Width 16.4 % (11.5-14.5)
[2025-02-27 08:41] LABS: ALT (SGPT) 98 U/L (0-35); AST (SGOT) 209 U/L (14-36); Albumin 3.2 g/dl (3.5-5.0); Alkaline Phosphatase 545 U/L (38-126); Blood Urea Nitrogen 36 mg/dl (7-17); Carbon Dioxide 25 mmol/L (22-30); Chloride 101 mmol/L (98-107); Direct Bilirubin 14.6 mg/dl (0.0-0.4); Estimated Creatinine Clearance 79 ml/min; Glucose 142 mg/dl (70-99); Potassium 4.3 mmol/L (3.5-5.1); Sodium 135 mmol/L (135-145); Total Bilirubin 17.4 mg/dl (0.2-1.3); eGFR > 60.00
[2025-02-27 09:15] LABS: Glucose - Point of Care 147 mg/dl (70-99)
[2025-02-27] MEDS: NOVOLOG FLEXPEN-LOW RESISTANCE SC ×2 (10:33→14:31)
--- NOTE | 2025-02-27 10:34 | CON.ONC ---
Impression
Impression
59 Year old female
Obstructive Jaundice
Hepatic Mass
BL LE Edema
Left Portal Vein Compression
Plan
Plan
- US/MRI show hepatic mass with left portal vein compression. Further imaging CT Abd/Pelvis demonstrates infiltrative mass within the central liver measuring approximately 5.9 x 4.5 cm & additional 2.6cm lesions in inf. L hepatic lobe with
associated occlusion of L portal vein concerning for HCC vs. Cholangiocarcinoma.
- Pt to receive paracentesis with fluid analysis, will follow.
- Percutaneous liver bx if possible today. If unsuccessful will try for EUS later in the week
- CEA 3.86, AFP elevated 90.9
- Tbili 17.4, direct 14.6, AST/ALT 209/98, ALP 545
- Pending hepatitis panel, will follow
- Will await path results and fluid analysis. Leflunomide is associated with reactivation of Hepatitis B/hepatocellular injury, which could be contributing, however greater concern is for malignant process given imaging findings of portal vein
compression and obstructive pattern LFTs. May benefit from additional CT imaging of the chest in addition to abd/pelvis for extrahepatic staging.
Patient History
History of Present Illness
59 year old woman with a past medical history significant for hypertension, rheumatoid arthritis, and NIDDM who presented to the ED for complaints of LE swelling and jaundice.
One month ago she began to notice epigastric pain which was new. She had recently started on Leflunomide for her RA and the sx were thought to be due to this drug, so she stopped taking it. However, she continued to have Epigastric pain. She had
also recently been started on Rybelsus by her PCP for her NIDDM which can also cause epigastric pain, nausea, pancreatitis and so she stopped this as well. Her epigastric pain did not improve and she began to develop jaundice. Blood work showed
elevated LFTs above prior, despite stopping Leflunomide. She was sent for an US of the abdomen which showed Heterogeneous liver parenchyma with multiple questioned intraparenchymal liver lesions. Further imaging with MRI was done which showed 1)
Poorly defined relatively hypoenhancing region in the central portion of liver extending into the upper portion of the caudate lobe, worrisome for a malignant process and 2) extrinsic compression of the left portal vein. She soon developed LE
swelling and was advised to come to the ED by her PCP. She also endorses recent pale stools and dark urine during this time. She denies any fevers, chills, vomiting, itching, headache, weight loss, night sweats during this time. She is a never
smoker who drinks alcohol occasionally. She has never had Hepatitis B infection and has been screened for hepatitis C and has received a hepatitis B vaccine. She has no history of HIV or family history of cancer.
At present she is feeling intermittently nauseous, and bloated, but without significant epigastric pain.
Past-Medical/Surgical History
Past Medical History: Hypertension, NIDDM, Rheumatoid Arthritis
Past Surgical History: , Appendectomy, Cholecystectomy
Patient Medication
�Medication �Instructions �Recorded �Confirmed �Last Taken �Type
cholecalciferol (vitamin D3) 50 50 mcg PO DAILY Supplement 02/25/25 02/25/25 02/24/25 History
mcg (2,000 unit) tablet (Vitamin
D3)
etanercept 50 mg/mL (1 mL) 50 mg SC ZIMMERMAN TNF INH 02/25/25 02/25/25 02/23/25 History
subcutaneous pen injector (Enbrel
SureClick)
losartan 50 mg tablet 50 mg PO DAILY Blood Pressure 02/25/25 02/25/25 02/24/25 History
therapeutic multivitamin 1 tab PO DAILY Supplement 02/25/25 02/25/25 02/24/25 History
Active Medications
Generic Name Dose Route Start Last Admin
Trade Name Freq PRN Reason Stop Dose Admin
Acetaminophen 650 mg 02/25/25 21:34
Acetaminophen 325 Mg Tablet PO 03/25/25 21:33
Q4HPRN PRN
mild pain/FLORES/temp> 100.4F
Bisacodyl 10 mg 02/25/25 21:34
Bisacodyl 10 Mg Rectal Suppository RECTAL 03/25/25 21:33
[id number] PRN
constipation
Dextrose 12.5 grams 02/25/25 23:00
Dextrose 50% (0.5 Grams/Ml) 50 Ml Syringe IV 03/25/25 22:59
[id number] PRN
hypoglycemia
Protocol
Glucagon 1 mg 02/25/25 23:00
Glucagon 1 Mg Vial IM 03/25/25 22:59
PRN PRN
hypoglycemia - no IV access
Protocol
Insulin Aspart 0 units 02/27/25 12:00
Insulin Aspart Low Resistance 300 Units/3 Ml Pen.Injctr SC 03/27/25 11:59
Q6 DARRYL
Protocol
Losartan Potassium 50 mg 02/26/25 08:00 02/27/25 08:04
Losartan 50 Mg Tablet PO 03/26/25 07:59 50 mg
DAILY DARRYL Administration
Ondansetron HCl 4 mg 02/25/25 21:34
Ondansetron 4 Mg/2 Ml Vial IV 03/25/25 21:33
Q6HPRN PRN
nausea and vomiting
Oxycodone HCl 5 mg 02/25/25 21:34
Oxycodone 5 Mg Regular Release Tablet PO 03/11/25 21:33
Q4HPRN PRN
moderate pain
Polyethylene Glycol 17 grams 02/25/25 21:34
Polyethylene Glycol Powder 17 Grams Packet PO 03/25/25 21:33
DAILYPRN PRN
constipation
Senna/Docusate Sodium 1 tablet 02/25/25 21:34
Docusate W/Senna (Tianna-Colace) Tablet PO 03/25/25 21:33
BIDPRN PRN
constipation
Sodium Chloride 0 flush 02/25/25 22:00
Sodium Chloride 0.9% (Flush) Syringe IV 04/29/25 21:59
PER PROTOCOL DARRYL
Review of Systems
-
History Source: Patient
Constitutional: Denies Fever, Weight Loss, Fatigue, Night Sweats or Chills
EENT: Reports No Symptoms
Respiratory: Reports No Symptoms
Cardiac: Reports No Symptoms
GI: Reports Abdominal Pain, Nausea, Bloated and Other (Pale stools); Denies Vomiting or Diarrhea
Breast: Reports No Symptoms
: Reports Dark Urine; Denies Dysuria or Flank Pain
Musculoskeletal: Reports No Symptoms
Skin: Reports Other (Jaundice); Denies Itching or Rash
Neuro: Reports No Symptoms
Endocrine: Reports No Symptoms
Hematologic/Lymphatic: Reports No Symptoms
Allergy / Immunology: Reports No Symptoms
Psych: Reports No Symptoms
Physical Exam
-
General: Well Developed, Well Nourished and No Apparent Distress
HEENT: Jaundice and Moist Mucous Membranes
Cardiology: Normal Sinus Rhythm, S1 and S2; Negative Murmur or Rub/Gallop
Pulmonary: Clear; Negative Wheezes, Rales or Rhonchi
GI: Soft, Normal Bowel Sounds and Other (Mild epigastric tenderness)
Genito-Urinary: Deferred by me
Musculoskeletal: Edema, Right Lower Extrem (trace pitting edema ) and Edema, Left Lower Extrem (trace pitting edema )
Extremities: Edema
Neurology: Non Focal
Skin: Warm, Dry and IV Access / Catheter Site
Hematologic / Lymphatic: No Lymphadenopathy and No Petechiae
Psych: Calm
Labs
Lab Results
WBC 16.0 10^3/uL (4.8-10.8) H 02/27/25 07:20
RBC 4.45 10^6/uL (4.20-5.40) 02/27/25 07:20
Hgb 14.3 g/dL (12.0-16.0) 02/27/25 07:20
Hct 40.8 % (37.0-47.0) 02/27/25 07:20
MCV 91.7 fL (81.0-99.0) 02/27/25 07:20
MCH 32.1 pg (27.0-31.0) H 02/27/25 07:20
MCHC 35.0 g/dL (33.0-37.0) 02/27/25 07:20
RDW 16.4 % (11.5-14.5) H 02/27/25 07:20
Plt Count 169 10^3/uL (130-400) D 02/27/25 07:20
MPV 10.9 fL (7.4-10.4) H 02/27/25 07:20
Abs Immat Gran (auto) 0.3 10^3/uL (0-0.05) H 02/27/25 07:20
Absolute Neuts (auto) 13.0 10^3/uL (1.4-6.5) H 02/27/25 07:20
Absolute Lymphs (auto) 1.4 10^3/uL (1.2-3.4) 02/27/25 07:20
Absolute Monos (auto) 1.1 10^3/uL (0.1-0.6) H 02/27/25 07:20
Absolute Eos (auto) 0.1 10^3/uL (0-0.7) 02/27/25 07:20
Absolute Basos (auto) 0.1 10^3/uL (0-0.2) 02/27/25 07:20
Immature Gran % 1.9 % (0-0.5) H 02/27/25 07:20
Neutrophils % 81.2 % (42.2-75.2) H 02/27/25 07:20
Lymphocytes % 8.4 % (20.5-51.1) L 02/27/25 07:20
Monocytes % 7.1 % (1.7-9.3) 02/27/25 07:20
Eosinophils % 0.9 % (0-6) 02/27/25 07:20
Basophils % 0.5 % (0-2) 02/27/25 07:20
Creatinine 0.8 mg/dL (0.6-1.0) 02/27/25 07:20
Vital Signs
Vital Signs
Temp Pulse Resp BP Pulse Ox
97.4 F 110 18 113/70 99
02/27/25 07:26 02/27/25 08:04 02/27/25 07:26 02/27/25 08:04 02/27/25 07:26
--- NOTE | 2025-02-27 11:39 | W.PN.HOSP.TC ---
Addendum entered and electronically signed by Arya Carrillo DO 02/28/25 13:13:
CDI: Mild hyponatremia, no clinical significance
Original Note:
Today's Communication/Plan
-
Plan for paracentesis and IR biopsy
Follow-up hepatitis panel
Trend LFTs
Resume diet after procedures
CT chest without contrast
Supportive measures for leg edema
Assessment / Plan
Assessment / Plan
#Obstructive jaundice
#Hepatic mass
-Concern for neoplastic biliary obstruction; likely hepatocellular carcinoma with AFP levels very high, CEA near ULN
-Presented with scleral icterus and jaundice; T. bili 15.6, T. bili 13, ALP 495, AST 161, ALT 81, INR 1.34, albumin 3.1
-Had recent outpatient ultrasound and MRCP that demonstrated concerning findings for obstruction/malignancy
-CT A/P with infiltrative mass of central liver, 5.9 x 4.5 cm, with lesion in the inferior left hepatic lobe, splenomegaly, small ascites
-Afebrile, hemodynamically stable; lower concern for cholangitis at this time
Plan
-Planning for paracentesis and percutaneous biopsy today
-May need EUS with biopsy on 02/28 if IR attempt unsuccessful today
-Follow-up hepatitis panel, check for reactivation of hep B on leflunomide
-Trend LFTs, coags, CBC, temperature curve
-May need to consider XRT, TACE to relieve obstruction
-Will need formal staging with CT Chest, eventual PET/CT
#Bilateral lower extremity edema
#Left portal vein compression
-Has bilateral lower extremity edema secondary to extrinsic compression of left portal vein by liver mass
-Lower extremity ultrasound negative for DVTs; echocardiogram without signs of cardiomyopathy
-Suspect that diuresis would not significantly improve her edema at this point
-Will need primary intervention into her liver mass once etiology is known
-Encourage compression stockings and leg elevation while resting
#Rheumatoid arthritis
-Home regimen includes etanercept; per GI was recently switched to leflunomide
-No known associations such as CAD or interstitial lung disease
-No evidence of RA flare at this time
#Primary hypertension
-No known history of hypertensive systemic disease
-Home regimen includes losartan 50 mg daily
-Blood pressure currently adequate
-Will continue to monitor
DVT prophylaxis: SCDs, avoid chemical AC with procedures planned 02/27
Diet: N.p.o. for paracentesis and biopsy; full diet otherwise
CODE STATUS: Full code
Anticipated Discharge: > 48 hours
Subjective/Interval History
-
Date of Service: February 27, 2025
Seen and examined at the bedside. No acute events reported overnight. AFVSS this morning
LFTs uptrending with T. bili 17, D. bili 14.9, slowly uptrending transaminases and ALP, albumin 3.2 and INR stable
Patient denies any acute complaints this morning including abdomen pain, fevers or chills.
Objective Data
-
Labs:
Laboratory Results
02/27/25
07:20
WBC 16.0 H
Hgb 14.3
Hct 40.8
Plt Count 169 D
PT 17.3 H
INR 1.36
APTT 29.7
Sodium 135
Potassium 4.3
Chloride 101
Carbon Dioxide 25
BUN 36 H
Creatinine 0.8
Glucose 142 H
Calcium 9.0
Total Bilirubin 17.4 H
AST 209 H
ALT 98 H
Alkaline Phosphatase 545 H
Vital Signs:
Vital Signs
Temp Pulse Resp BP Pulse Ox
97.4 F 110 18 113/70 99
02/27/25 07:26 02/27/25 08:04 02/27/25 07:26 02/27/25 08:04 02/27/25 07:26
I&O
02/26/25 02/27/25 02/28/25
06:59 06:59 06:59
Intake Total 720 / 720 1320 / 1320
Balance 720 / 720 1320 / 1320
Review of Systems
-
History Source: Patient
All other systems: Reviewed and negative
Physical Exam
-
General: Well Developed, No Apparent Distress, Comfortable and Obese
HEENT: Normocephalic, Atraumatic, Moist Mucous Membranes and Other (Icteric sclera)
Respiratory: Clear to Auscultation and Non Labored Respirations
Cardiac: Regular Rhythm and S1/S2; Negative Murmur, Rub or Gallop
GI: Soft, Nontender, Nondistended and Normal Bowel Sounds
Musculoskeletal: No Clubbing, No Cyanosis and No Edema
Skin: Warm, Dry and Jaundice; Negative Rash
Neuro: AO x 3 and Nonfocal/Grossly Intact; Negative Tremors
Psych: Calm
Data Reviewed
-
Labs: Labs Reviewed by me, Discussed with Physician (Oncology), Discussed with Patient and Discussed with Family
--- NOTE | 2025-02-27 12:46 | W.PN.UPDATE ---
Update Note
Progress Note Update
- Pt brought to IR for para and possible US guided liver biopsy. Neither procedure performed. Scant abdominal ascites, not enough for a para.
- Thorough US evaluation of liver performed and prior imaging reviewed. I could not confidently locate the lesion within the inferior left hepatic lobe. No focal lesions identified. Biopsy not performed.
[2025-02-27 14:18] LABS: Glucose - Point of Care 145 mg/dl (70-99)
--- NOTE | 2025-02-27 14:46 | CM ---
Patient seen at bedside
Para & bx not done.
Patient gave CM Living Will-placed in chart
PLAN: Home, currently no needs, will continue to monitor hospital progress
[2025-02-27 14:55] VITALS: BP 112/76
[2025-02-27 16:29] LABS: Glucose - Point of Care 286 mg/dl (70-99)
[2025-02-27] MEDS: NOVOLOG FLEXPEN-LOW RESISTANCE 3 UNITS SC (17:37)
[2025-02-27 19:16] LABS: Hepatitis B Surface Antigen Negative (Negative)
[2025-02-27 19:35] LABS: Hepatitis B Core Ab, Total Negative (Negative); Hepatitis B Surface Antibody Negative; Hepatitis C Antibody Negative (Negative)
[2025-02-27 21:51] LABS: Glucose - Point of Care 279 mg/dl (70-99)
[2025-02-27 23:00] VITALS: BP 111/70
[2025-02-28 07:24] LABS: Glucose - Point of Care 168 mg/dl (70-99)
[2025-02-28 07:27] VITALS: BP 114/77
[2025-02-28 07:54] LABS: % Basophils 0.3 % (0-2); % Eosinophils 0.7 % (0-6); % Immature Granulocytes 1.3 % (0-0.5); % Lymphocytes 5.8 % (20.5-51.1); % Monocytes 7.2 % (1.7-9.3); % Neutrophils 84.7 % (42.2-75.2); Absolute Eosinophils 0.1 10^3/uL (0-0.7); Absolute Immature Granulocytes 0.2 10^3/uL (0-0.05); Absolute Lymphocytes 0.9 10^3/uL (1.2-3.4); Absolute Monocytes 1.1 10^3/uL (0.1-0.6); Absolute Neutrophils 13.2 10^3/uL (1.4-6.5); Hematocrit 35.1 % (37.0-47.0); Hemoglobin 12.4 g/dL (12.0-16.0); Mean Corp Hgb Conc. 35.3 g/dL (33.0-37.0); Mean Corpuscular Volume 90.5 fL (81.0-99.0); Mean Platelet Volume 11.6 fL (7.4-10.4); Nucleated Red Blood Cells % 0 %; Platelet Count 150 10^3/uL (130-400); Red Blood Cell Count 3.88 10^6/uL (4.20-5.40); Red Cell Dist. Width 16.5 % (11.5-14.5); White Blood Cell Count 15.6 10^3/uL (4.8-10.8)
[2025-02-28] MEDS: COZAAR 50 MG PO (07:59)
[2025-02-28] MEDS: NOVOLOG FLEXPEN-LOW RESISTANCE 1 UNITS SC (08:03)
[2025-02-28 08:10] LABS: INR 1.41; PT 17.6 Sec (11.4-14.6)
[2025-02-28 08:34] LABS: ALT (SGPT) 99 U/L (0-35); AST (SGOT) 220 U/L (14-36); Albumin 2.6 g/dl (3.5-5.0); Alkaline Phosphatase 490 U/L (38-126); Blood Urea Nitrogen 48 mg/dl (7-17); Calcium 8.4 mg/dl (8.4-10.2); Carbon Dioxide 23 mmol/L (22-30); Chloride 102 mmol/L (98-107); Direct Bilirubin 13.7 mg/dl (0.0-0.4); Estimated Creatinine Clearance 64 ml/min; Glucose 183 mg/dl (70-99); Sodium 133 mmol/L (135-145); Total Bilirubin 15.9 mg/dl (0.2-1.3); Total Protein 5.8 g/dl (6.3-8.2); eGFR > 60.00
--- NOTE | 2025-02-28 11:59 | W.PN.HOSP.TC ---
Today's Communication/Plan
-
Speak with IR about transjugular liver biopsy
May need to consider EUS/ERCP with biopsy
Give Lasix 20 mg x 1 for edema
Encourage leg elevation and compression stockings
Trend LFTs
Assessment / Plan
Assessment / Plan
#Obstructive jaundice
#Hepatic mass
-Concern for neoplastic biliary obstruction; likely hepatocellular carcinoma with AFP levels very high, CEA near ULN
-Presented with scleral icterus and jaundice; T. bili 15.6, T. bili 13, ALP 495, AST 161, ALT 81, INR 1.34, albumin 3.1
-Had recent outpatient ultrasound and MRCP that demonstrated concerning findings for obstruction/malignancy
-CT A/P with infiltrative mass of central liver, 5.9 x 4.5 cm, with lesion in the inferior left hepatic lobe, splenomegaly, small ascites
-Interventional radiology attempted paracentesis and liver biopsy on 02/27 though unsuccessful for both
-Afebrile, hemodynamically stable; lower concern for cholangitis at this time
Plan
-Speak with IR about possible transjugular biopsy of the liver
-May need EUS with biopsy on if IR attempt unsuccessful
-Trend LFTs, coags, CBC, temperature curve
-May need to consider XRT, TACE to relieve obstruction
-Will need formal staging with eventual PET/CT
#Bilateral lower extremity edema
#Left portal vein compression
-Has bilateral lower extremity edema secondary to extrinsic compression of left portal vein by liver mass
-Lower extremity ultrasound negative for DVTs; echocardiogram without signs of cardiomyopathy
-Suspect that diuresis would not significantly improve her edema at this point
-Will need primary intervention into her liver mass once etiology is known
-Encourage compression stockings and leg elevation while resting
-Will give 1 dose of Lasix 20 mg today, assess for improvement
#Rheumatoid arthritis
-Home regimen includes etanercept; per GI was recently switched to leflunomide
-No known associations such as CAD or interstitial lung disease
-No evidence of RA flare at this time
#Primary hypertension
-No known history of hypertensive systemic disease
-Home regimen includes losartan 50 mg daily
-Blood pressure currently adequate
-Will continue to monitor
#NIDDM
-No recent A1c; no known history of microvascular disease complication
-Diet controlled, does not appear to be on any home medications
-Blood sugars here have been slightly elevated though stable at other times
-Currently on ISS with Accu-Cheks
DVT prophylaxis: SCDs, avoid chemical AC with procedures planned
Diet: Regular for now
CODE STATUS: Full code
Anticipated Discharge: > 48 hours
Subjective/Interval History
-
Date of Service: February 28, 2025
Seen and examined at the bedside. No acute events reported overnight. AFVSS this morning
LFTs stable, no uptrend from yesterday. IR attempted paracentesis in liver biopsy that were unsuccessful.
States her leg edema is slightly worse today. She denies any other new complaints including fevers or chills, chest pain, dyspnea
Objective Data
-
Labs:
Laboratory Results
02/28/25
07:10
WBC 15.6 H
Hgb 12.4
Hct 35.1 L
Plt Count 150
PT 17.6 H
INR 1.41
Sodium 133 L
Potassium 5.0
Chloride 102
Carbon Dioxide 23
BUN 48 H
Creatinine 1.0
Glucose 183 H
Calcium 8.4
Total Bilirubin 15.9 H
AST 220 H
ALT 99 H
Alkaline Phosphatase 490 H
Vital Signs:
Vital Signs
Temp Pulse Resp BP Pulse Ox
97.7 F 96 17 114/77 97
02/28/25 07:27 02/28/25 07:59 02/28/25 07:27 02/28/25 07:59 02/28/25 07:27
I&O
02/27/25 02/28/25 03/01/25
06:59 06:59 06:59
Intake Total 1320 / 1320 240 / 240
Balance 1320 / 1320 240 / 240
Review of Systems
-
History Source: Patient
All other systems: Reviewed and negative
Physical Exam
-
General: Well Developed, No Apparent Distress and Obese
HEENT: Normocephalic, Atraumatic, Moist Mucous Membranes and Other (Scleral icterus)
Respiratory: Clear to Auscultation and Non Labored Respirations
Cardiac: Regular Rhythm and S1/S2; Negative Murmur, Rub or Gallop
GI: Soft, Nondistended, Normal Bowel Sounds and Tender (Mild epigastric, no peritoneal signs)
Musculoskeletal: No Clubbing, No Cyanosis and Other (2+ lower extremity edema)
Skin: Warm, Dry and Jaundice; Negative Rash
Neuro: AO x 3 and Nonfocal/Grossly Intact; Negative Tremors
Psych: Calm
Data Reviewed
-
Labs: Labs Reviewed by me, Discussed with Physician (Gastroenterology, interventional radiology) and Discussed with Patient
[2025-02-28 12:03] LABS: Glucose - Point of Care 289 mg/dl (70-99)
--- NOTE | 2025-02-28 12:15 | PN.CDI ---
CDI
- -
CDI:
Physician Documentation Request
Admit Date: 02/25/25 20:36
Dear Doctor Gerardo,
Please review the following and provide your response in the progress notes.
Clinical Indicators:
Pt admitted with hepatic mass/obstructive jaundice /ascites
Sodium levels are as below
02/25/25 02/26/25 02/28/25
16:56 08:21 07:10
Sodium 134 L 133 L 133 L
Based on the above, could you clarify in the progress notes, the appropriate diagnosis, if significant, that supports the above abnormalities and additional evaluation, monitoring and/or treatment rendered:
Hyponatremia
Abnormal lab value
Other ( please specify)
Use of terms such as suspected, likely, concern for, or probable (associated with a specific diagnosis that is being evaluated, monitored, or treated as if it exists) are acceptable and can be coded in the inpatient setting, when documented at the
time of discharge.
Thank you,
Verenice Mendieta RN
CDI Specialist
[place] [employer]
Please use your independent medical judgment in providing your response.
[2025-02-28] MEDS: ZOFRAN 4 MG IV (12:27)
[2025-02-28] MEDS: NOVOLOG FLEXPEN-LOW RESISTANCE 3 UNITS SC ×2 (14:10→18:18)
[2025-02-28] MEDS: LASIX 20 MG PO (14:15)
[2025-02-28 15:09] VITALS: BP 107/76
[2025-02-28 16:53] LABS: Glucose - Point of Care 271 mg/dl (70-99)
[2025-02-28 21:23] LABS: Glucose - Point of Care 284 mg/dl (70-99)
[2025-02-28 23:51] VITALS: BP 119/65
[2025-03-01 07:51] VITALS: BP 111/70
[2025-03-01 07:53] LABS: % Basophils 0.3 % (0-2); % Eosinophils 0.9 % (0-6); % Immature Granulocytes 2.3 % (0-0.5); % Lymphocytes 7.2 % (20.5-51.1); % Neutrophils 81.3 % (42.2-75.2); Absolute Basophils 0.1 10^3/uL (0-0.2); Absolute Eosinophils 0.2 10^3/uL (0-0.7); Absolute Immature Granulocytes 0.4 10^3/uL (0-0.05); Absolute Lymphocytes 1.3 10^3/uL (1.2-3.4); Absolute Monocytes 1.4 10^3/uL (0.1-0.6); Hematocrit 37.1 % (37.0-47.0); Hemoglobin 13.1 g/dL (12.0-16.0); Mean Corp Hgb Conc. 35.3 g/dL (33.0-37.0); Mean Corpuscular Volume 90.7 fL (81.0-99.0); Mean Platelet Volume 10.5 fL (7.4-10.4); Nucleated Red Blood Cells % 0 %; Platelet Count 162 10^3/uL (130-400); Red Blood Cell Count 4.09 10^6/uL (4.20-5.40); Red Cell Dist. Width 16.8 % (11.5-14.5); White Blood Cell Count 17.3 10^3/uL (4.8-10.8)
[2025-03-01 07:58] LABS: Glucose - Point of Care 136 mg/dl (70-99)
[2025-03-01 08:12] LABS: INR 1.33; PT 16.7 Sec (11.4-14.6)
[2025-03-01] MEDS: NOVOLOG FLEXPEN-LOW RESISTANCE SC (08:45)
[2025-03-01] MEDS: COZAAR 50 MG PO (08:46)
[2025-03-01 08:54] LABS: ALT (SGPT) 116 U/L (0-35); AST (SGOT) 245 U/L (14-36); Albumin 2.6 g/dl (3.5-5.0); Alkaline Phosphatase 519 U/L (38-126); Blood Urea Nitrogen 58 mg/dl (7-17); Calcium 8.5 mg/dl (8.4-10.2); Carbon Dioxide 25 mmol/L (22-30); Chloride 100 mmol/L (98-107); Direct Bilirubin 15.9 mg/dl (0.0-0.4); Estimated Creatinine Clearance 49 ml/min; Glucose 153 mg/dl (70-99); Potassium 5.1 mmol/L (3.5-5.1); Sodium 134 mmol/L (135-145); Total Bilirubin 18.1 mg/dl (0.2-1.3); Total Protein 6.1 g/dl (6.3-8.2); eGFR 47.08
--- NOTE | 2025-03-01 11:40 | W.PN.HOSP.TC ---
Today's Communication/Plan
-
Plan for transjugular liver biopsy with IR
Resume heparin DVT prophylaxis
Trend daily LFTs
Supportive measures for edema
Avoid further Lasix due to mild CRISTIAN
Assessment / Plan
Assessment / Plan
#Obstructive jaundice
#Hepatic mass
-Concern for neoplastic biliary obstruction; likely hepatocellular carcinoma with AFP levels very high, CEA near ULN
-Presented with scleral icterus and jaundice; T. bili 15.6, T. bili 13, ALP 495, AST 161, ALT 81, INR 1.34, albumin 3.1
-Had recent outpatient ultrasound and MRCP that demonstrated concerning findings for obstruction/malignancy
-CT A/P with infiltrative mass of central liver, 5.9 x 4.5 cm, with lesion in the inferior left hepatic lobe, splenomegaly, small ascites
-Interventional radiology attempted paracentesis and liver biopsy on 02/27 though unsuccessful for both
-Afebrile, hemodynamically stable; lower concern for cholangitis at this time
Plan
-Plan for transjugular liver biopsy with IR once kit is obtained
-May need EUS with biopsy on if IR attempt unsuccessful
-Trend LFTs, coags, CBC, temperature curve
-May need to consider XRT, TACE to relieve obstruction
-Will need formal staging with eventual PET/CT
#Mild prerenal CRISTIAN
-Secondary to Lasix 20 mg, in context of left portal vein compression and reduced circulatory state
-It did improve her edema however creatinine bumped from 1.0-1.3 on labs today
-Will hold off on further doses of Lasix, encourage oral hydration and supportive measures for edema
-Trend BMP
#Bilateral lower extremity edema
#Left portal vein compression
-Has bilateral lower extremity edema secondary to extrinsic compression of left portal vein by liver mass
-Lower extremity ultrasound negative for DVTs; echocardiogram without signs of cardiomyopathy
-Suspect that diuresis would not significantly improve her edema at this point
-Will need primary intervention into her liver mass once etiology is known
-Encourage compression stockings and leg elevation while resting
-Mild CRISTIAN with low-dose oral Lasix, avoid further diuresis
#Rheumatoid arthritis
-Home regimen includes etanercept; per GI was recently switched to leflunomide
-No known associations such as CAD or interstitial lung disease
-No evidence of RA flare at this time
#Primary hypertension
-No known history of hypertensive systemic disease
-Home regimen includes losartan 50 mg daily
-Blood pressure currently adequate
-Will continue to monitor
#NIDDM
-No recent A1c; no known history of microvascular disease complication
-Diet controlled, does not appear to be on any home medications
-Blood sugars here have been slightly elevated though stable at other times
-Currently on ISS with Accu-Cheks
DVT prophylaxis: Heparin for now; will need to hold prior to transjugular biopsy
Diet: Regular for now
CODE STATUS: Full code
Anticipated Discharge: > 48 hours
Subjective/Interval History
-
Date of Service: March 01, 2025
Seen and examined at the bedside. No acute events reported overnight. AFVSS this morning
Creatinine bumped from 1-1.3 after 20 mg Lasix yesterday. LFTs fairly stable compared with recent labs
States that her leg edema has improved. Denies any other new complaints today
Objective Data
-
Labs:
Laboratory Results
03/01/25
07:35
WBC 17.3 H
Hgb 13.1
Hct 37.1
Plt Count 162
PT 16.7 H
INR 1.33
Sodium 134 L
Potassium 5.1
Chloride 100
Carbon Dioxide 25
BUN 58 H
Creatinine 1.3 H
Glucose 153 H
Calcium 8.5
Total Bilirubin 18.1 H*
AST 245 H
ALT 116 H
Alkaline Phosphatase 519 H
Vital Signs:
Vital Signs
Temp Pulse Resp BP Pulse Ox
97.3 F 99 14 111/70 98
03/01/25 07:51 03/01/25 07:51 03/01/25 07:51 03/01/25 07:51 03/01/25 07:51
I&O
02/28/25 03/01/25 03/02/25
06:59 06:59 06:59
Intake Total 240 / 240 1440 / 1440
Balance 240 / 240 1440 / 1440
Review of Systems
-
History Source: Patient
All other systems: Reviewed and negative
Physical Exam
-
General: Well Developed, No Apparent Distress and Obese
HEENT: Normocephalic, Atraumatic, Moist Mucous Membranes and Other (Scleral icterus)
Respiratory: Clear to Auscultation and Non Labored Respirations
Cardiac: Regular Rhythm and S1/S2; Negative Murmur, Rub or Gallop
GI: Soft, Nondistended, Normal Bowel Sounds and Tender (Mild epigastric tenderness)
Musculoskeletal: No Clubbing, No Cyanosis and Other (Trace lower extremity edema, compression stockings applied)
Skin: Warm, Dry and Jaundice; Negative Rash
Neuro: AO x 3 and Nonfocal/Grossly Intact; Negative Tremors
Psych: Calm
Data Reviewed
-
Labs: Labs Reviewed by me and Discussed with Patient
[2025-03-01 11:58] LABS: Glucose - Point of Care 267 mg/dl (70-99)
[2025-03-01] MEDS: NOVOLOG FLEXPEN-LOW RESISTANCE 3 UNITS SC ×2 (14:16→17:21)
[2025-03-01 15:33] VITALS: BP 94/59
[2025-03-01 16:41] LABS: Glucose - Point of Care 272 mg/dl (70-99)
[2025-03-01] MEDS: HEPARIN 5000 UNITS SC (17:18)
[2025-03-01 23:00] VITALS: BP 95/50
[2025-03-02] MEDS: HEPARIN 5000 UNITS SC ×4 (00:49→23:54)
[2025-03-02 01:13] LABS: Glucose - Point of Care 194 mg/dl (70-99)
[2025-03-02 06:30] LABS: % Basophils 0.5 % (0-2); % Eosinophils 0.9 % (0-6); % Immature Granulocytes 1.9 % (0-0.5); % Lymphocytes 7.3 % (20.5-51.1); % Monocytes 8.9 % (1.7-9.3); % Neutrophils 80.5 % (42.2-75.2); Absolute Basophils 0.1 10^3/uL (0-0.2); Absolute Eosinophils 0.1 10^3/uL (0-0.7); Absolute Immature Granulocytes 0.3 10^3/uL (0-0.05); Absolute Monocytes 1.2 10^3/uL (0.1-0.6); Absolute Neutrophils 10.5 10^3/uL (1.4-6.5); Hemoglobin 12.9 g/dL (12.0-16.0); Mean Corp Hgb Conc. 35.8 g/dL (33.0-37.0); Mean Corpuscular Hgb 31.8 pg (27.0-31.0); Mean Corpuscular Volume 88.7 fL (81.0-99.0); Mean Platelet Volume 10.9 fL (7.4-10.4); Nucleated Red Blood Cells % 0 %; Platelet Count 140 10^3/uL (130-400); Red Blood Cell Count 4.06 10^6/uL (4.20-5.40); Red Cell Dist. Width 16.8 % (11.5-14.5); White Blood Cell Count 13.1 10^3/uL (4.8-10.8)
[2025-03-02 06:55] LABS: ALT (SGPT) 124 U/L (0-35); AST (SGOT) 258 U/L (14-36); Albumin 2.5 g/dl (3.5-5.0); Alkaline Phosphatase 515 U/L (38-126); Blood Urea Nitrogen 67 mg/dl (7-17); Calcium 8.4 mg/dl (8.4-10.2); Carbon Dioxide 22 mmol/L (22-30); Chloride 102 mmol/L (98-107); Direct Bilirubin 16.4 mg/dl (0.0-0.4); Estimated Creatinine Clearance 42 ml/min; Glucose 184 mg/dl (70-99); Potassium 5.2 mmol/L (3.5-5.1); Sodium 132 mmol/L (135-145); Total Bilirubin 18.8 mg/dl (0.2-1.3); Total Protein 5.9 g/dl (6.3-8.2); eGFR 39.65
[2025-03-02] MEDS: COZAAR PO (08:21)
[2025-03-02 08:26] LABS: Glucose - Point of Care 172 mg/dl (70-99)
[2025-03-02] MEDS: NOVOLOG FLEXPEN-LOW RESISTANCE 1 UNITS SC (08:31)
[2025-03-02 08:50] VITALS: BP 95/51
--- NOTE | 2025-03-02 11:12 | W.PN.HOSP.TC ---
Today's Communication/Plan
-
Plan for transjugular liver biopsy with IR this week
Hold ARB and diuretics
Consider IV fluids
Nephrology consult
Assessment / Plan
Assessment / Plan
#Obstructive jaundice
#Hepatic mass
-Concern for neoplastic biliary obstruction; likely hepatocellular carcinoma with AFP levels very high, CEA near ULN
-Presented with scleral icterus and jaundice; T. bili 15.6, T. bili 13, ALP 495, AST 161, ALT 81, INR 1.34, albumin 3.1
-Had recent outpatient ultrasound and MRCP that demonstrated concerning findings for obstruction/malignancy
-CT A/P with infiltrative mass of central liver, 5.9 x 4.5 cm, with lesion in the inferior left hepatic lobe, splenomegaly, small ascites
-Interventional radiology attempted paracentesis and liver biopsy on 02/27 though unsuccessful for both
-Afebrile, hemodynamically stable; lower concern for cholangitis at this time
Plan
-Plan for transjugular liver biopsy with IR once kit is obtained
-May need EUS with biopsy on if IR attempt unsuccessful
-Trend LFTs, coags, CBC, temperature curve
-May need to consider XRT, TACE to relieve obstruction
-Will need formal staging with eventual PET/CT
#Mild prerenal CRISTIAN
-Secondary to Lasix 20 mg and ARB, in context of left portal vein compression and reduced circulatory state
-It did improve her edema however creatinine bumped from 1.0-1.3-1.5 as of BMP 03/02
-No further doses of Lasix given; remains with good urine output; blood pressure soft
-No signs or symptoms of urinary obstruction
Plan
-Hold ARB, no further doses of Lasix
-Trend BMP and UOP; MAP > 65 mmHg
-Avoid nephrotoxic agents
-Nephrology consult
#Bilateral lower extremity edema
#Left portal vein compression
-Has bilateral lower extremity edema secondary to extrinsic compression of left portal vein by liver mass
-Lower extremity ultrasound negative for DVTs; echocardiogram without signs of cardiomyopathy
-Will need primary intervention into her liver mass once etiology is known
-Encourage compression stockings and leg elevation while resting
-Mild CRISTIAN with low-dose oral Lasix, avoid further diuresis
#Rheumatoid arthritis
-Home regimen includes etanercept; per GI was recently switched to leflunomide
-No known associations such as CAD or interstitial lung disease
-No evidence of RA flare at this time
#Primary hypertension
-No known history of hypertensive systemic disease
-Home regimen includes losartan 50 mg daily
-Blood pressure currently adequate
-Will continue to monitor
#NIDDM
-No recent A1c; no known history of microvascular disease complication
-Diet controlled, does not appear to be on any home medications
-Blood sugars here have been slightly elevated though stable at other times
-Currently on ISS with Accu-Cheks
DVT prophylaxis: Heparin for now; will need to hold prior to transjugular biopsy
Diet: Regular for now
CODE STATUS: Full code
Anticipated Discharge: > 48 hours
Subjective/Interval History
-
Date of Service: March 02, 2025
Seen and examined at the bedside. No acute events reported overnight. AFVSS with soft blood pressure
Renal function slowly worsening with creatinine up to 1.5. Patient states she feels nauseous today, leg edema improved with compression stockings
Denies any new complaints as of this morning
Objective Data
-
Labs:
Laboratory Results
03/02/25
05:05
WBC 13.1 H
Hgb 12.9
Hct 36.0 L
Plt Count 140
Sodium 132 L
Potassium 5.2 H
Chloride 102
Carbon Dioxide 22
BUN 67 H
Creatinine 1.5 H
Glucose 184 H
Calcium 8.4
Total Bilirubin 18.8 H*
AST 258 H
ALT 124 H
Alkaline Phosphatase 515 H
Vital Signs:
Vital Signs
Temp Pulse Resp BP Pulse Ox
97.8 F 89 16 95/51 100
03/02/25 08:50 03/02/25 08:50 03/02/25 08:50 03/02/25 08:50 03/02/25 08:50
I&O
03/01/25 03/02/25 03/03/25
06:59 06:59 06:59
Intake Total 1440 / 1440 1440 / 1440
Balance 1440 / 1440 1440 / 1440
Review of Systems
-
History Source: Patient
All other systems: Reviewed and negative
Physical Exam
-
General: Well Developed, No Apparent Distress and Obese
HEENT: Normocephalic, Atraumatic, Moist Mucous Membranes and Other (Scleral icterus)
Respiratory: Clear to Auscultation and Non Labored Respirations; Negative Accessory Resp Muscle Use
Cardiac: Regular Rhythm and S1/S2; Negative Murmur, Rub or Gallop
GI: Soft, Nontender, Nondistended and Normal Bowel Sounds
Musculoskeletal: No Clubbing, No Cyanosis and Other (Trace to 1+ edema, compression stockings)
Skin: Warm, Dry and Jaundice
Neuro: AO x 3 and Nonfocal/Grossly Intact; Negative Tremors
Psych: Calm
Data Reviewed
-
Labs: Labs Reviewed by me, Discussed with Physician (Medical Fee Clerk) and Discussed with Patient
[2025-03-02 12:21] LABS: Glucose - Point of Care 250 mg/dl (70-99)
--- NOTE | 2025-03-02 12:52 | W.CON.NEPH ---
Consultation
-
Date/Time Consultation Requested: March 02, 2025 8:30 AM
Date/Time Consultation Performed: March 02, 2025 at 12 PM
Requesting Provider: Dr. Carrillo
Performing Provider: Dr. Mathew
Reason for Consultation: Acute kidney injury
Medical History
-
Chief Complaint: Acute kidney injury
History of Present Illness:
59-year-old female past medical history of diabetes and rheumatoid arthritis who presents with 1 month of painless jaundice and new onset lower extremity edema and ascites. She has had multiple imaging done no obstructive mass. She has some
ascites but not enough for paracentesis. They were unable to find the lesion to perform the liver biopsy.
Renal consult obtained for acute kidney injury with normal renal function on admission has increased to 1.5.
She has a very poor effective arterial blood volume as she was getting diuretics which have been held she is anasarcic.
Past Medical History
Hypertension, rheumatoid arthritis,
Social History
Tobacco: Non-Smoker
Alcohol: None
Family History
Family History: Not Pertinent
Allergies / Home Medications
Allergy/AdvReac Type Severity Reaction Status Date / Time
No Known Allergies Allergy Verified 02/25/25 16:05
�Medication �Instructions �Recorded �Confirmed �Type
cholecalciferol (vitamin D3) 50 50 mcg PO DAILY Supplement 02/25/25 02/25/25 History
mcg (2,000 unit) tablet (Vitamin
D3)
etanercept 50 mg/mL (1 mL) 50 mg SC ZIMMERMAN TNF INH 02/25/25 02/25/25 History
subcutaneous pen injector (Enbrel
SureClick)
losartan 50 mg tablet 50 mg PO DAILY Blood Pressure 02/25/25 02/25/25 History
therapeutic multivitamin 1 tab PO DAILY Supplement 02/25/25 02/25/25 History
Review of Systems
-
Leg swelling no chest pain or shortness of breath
All other systems: Negative unless noted
Physical Exam
Vital Signs
Vital Signs
Temp Pulse Resp BP Pulse Ox
97.8 F 89 16 95/51 100
03/02/25 08:50 03/02/25 08:50 03/02/25 08:50 03/02/25 08:50 03/02/25 08:50
Lab Results
WBC 13.1 10^3/uL (4.8-10.8) H 03/02/25 05:05
RBC 4.06 10^6/uL (4.20-5.40) L 03/02/25 05:05
Hgb 12.9 g/dL (12.0-16.0) 03/02/25 05:05
Hct 36.0 % (37.0-47.0) L 03/02/25 05:05
Plt Count 140 10^3/uL (130-400) 03/02/25 05:05
Sodium 132 mmol/L (135-145) L 03/02/25 05:05
Potassium 5.2 mmol/L (3.5-5.1) H 03/02/25 05:05
Chloride 102 mmol/L (98-107) 03/02/25 05:05
Carbon Dioxide 22 mmol/L (22-30) 03/02/25 05:05
BUN 67 mg/dl (7-17) H 03/02/25 05:05
Creatinine 1.5 mg/dL (0.6-1.0) H 03/02/25 05:05
eGFR 39.65 03/02/25 05:05
Glucose 184 mg/dl (70-99) H 03/02/25 05:05
Calcium 8.4 mg/dl (8.4-10.2) 03/02/25 05:05
Lpb-Y-Utseotdxwke Pept 327 pg/ml 02/26/25 08:21
Albumin 2.5 g/dl (3.5-5.0) L 03/02/25 05:05
Physical Exam
General no acute distress
HEENT no cephalic atraumatic extraocular muscle intact ++ scleral icterus no JVD neck supple
lungs clear to auscultation bilateral
heart regular S1-S2 positive
abdomen soft nontender positive bowel sounds
extremities anasarca
Neurologically nonfocal alert and oriented x 3
Skin jaundiced
Psych normal affect no bizarre behavior
Data Reviewed
-
Radiology: Image Personally Visualized and interpreted
Labs: Labs Reviewed by me, Discussed with Physician and Discussed with Patient
Assessment/Plan
-
59-year-old female past medical history of diabetes and rheumatoid arthritis who presents with 1 month of painless jaundice and new onset lower extremity edema and ascites. She has had multiple imaging done no obstructive mass. She has some
ascites but not enough for paracentesis. They were unable to find the lesion to perform the liver biopsy.
Renal consult obtained for acute kidney injury with normal renal function on admission has increased to 1.5.
She has a very poor effective arterial blood volume as she was getting diuretics which have been held she is anasarcic.
Impression.
Acute kidney injury with a creatinine of 1.5 from 0.9 on admission.
Cirrhosis
Jaundice
Mass with portal vein obstruction
Rheumatoid arthritis
Plan.
Acuity multifactorial secondary to poor effective arterial blood volume.
Possible hepatorenal.
Check urine indices.
Discontinue IV fluids as she is total body volume overloaded.
I will give albumin every 8. Will consider diuresing with intravascular volume expansion
Pending transjugular liver biopsy
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
Discussed with primary hospitalist
[2025-03-02] MEDS: NOVOLOG FLEXPEN-LOW RESISTANCE 3 UNITS SC (13:47)
[2025-03-02] MEDS: FLEXBUMIN 100 IV ×2 (14:26→22:15)
[2025-03-02 15:30] VITALS: BP 104/59
[2025-03-02 17:54] LABS: Glucose - Point of Care 242 mg/dl (70-99)
[2025-03-02] MEDS: NOVOLOG FLEXPEN-LOW RESISTANCE 2 UNITS SC (18:07)
[2025-03-02 21:14] LABS: Glucose - Point of Care 245 mg/dl (70-99)
[2025-03-02 23:00] VITALS: BP 100/56
[2025-03-03 00:45] LABS: Urine Protein 13 mg/dl; Urine Sodium 6 mmol/L (30-90)
[2025-03-03 01:12] LABS: Protein/creatinine Ratio 0.1
[2025-03-03] MEDS: FLEXBUMIN 100 IV ×3 (06:03→22:15)
[2025-03-03 07:24] VITALS: BP 105/63
[2025-03-03 08:04] LABS: % Basophils 0.3 % (0-2); % Eosinophils 0.8 % (0-6); % Immature Granulocytes 1.8 % (0-0.5); % Lymphocytes 6.7 % (20.5-51.1); % Monocytes 7.8 % (1.7-9.3); % Neutrophils 82.6 % (42.2-75.2); Absolute Eosinophils 0.1 10^3/uL (0-0.7); Absolute Immature Granulocytes 0.2 10^3/uL (0-0.05); Absolute Lymphocytes 0.7 10^3/uL (1.2-3.4); Absolute Monocytes 0.9 10^3/uL (0.1-0.6); Hematocrit 35.3 % (37.0-47.0); Hemoglobin 12.4 g/dL (12.0-16.0); Mean Corp Hgb Conc. 35.1 g/dL (33.0-37.0); Mean Corpuscular Hgb 32.2 pg (27.0-31.0); Mean Corpuscular Volume 91.7 fL (81.0-99.0); Nucleated Red Blood Cells % 0 %; Red Blood Cell Count 3.85 10^6/uL (4.20-5.40); White Blood Cell Count 10.9 10^3/uL (4.8-10.8)
[2025-03-03 08:05] LABS: Glucose - Point of Care 156 mg/dl (70-99)
[2025-03-03 08:15] LABS: INR 1.61; PT 19.4 Sec (11.4-14.6)
[2025-03-03] MEDS: ProAmatine 5 MG PO ×3 (08:26→17:50)
[2025-03-03] MEDS: HEPARIN 5000 UNITS SC (08:28)
[2025-03-03 09:10] LABS: ALT (SGPT) 100 U/L (0-35); AST (SGOT) 179 U/L (14-36); Albumin 3.8 g/dl (3.5-5.0); Alkaline Phosphatase 512 U/L (38-126); Blood Urea Nitrogen 68 mg/dl (7-17); Carbon Dioxide 22 mmol/L (22-30); Chloride 100 mmol/L (98-107); Direct Bilirubin 20.7 mg/dl (0.0-0.4); Estimated Creatinine Clearance 49 ml/min; Glucose 168 mg/dl (70-99); Potassium 4.8 mmol/L (3.5-5.1); Sodium 135 mmol/L (135-145); Total Bilirubin 23.6 mg/dl (0.2-1.3); eGFR 47.08
[2025-03-03] MEDS: NOVOLOG FLEXPEN-LOW RESISTANCE 1 UNITS SC (09:12)
[2025-03-03 11:16] LABS: Glucose - Point of Care 241 mg/dl (70-99)
--- NOTE | 2025-03-03 11:35 | W.PN.HOSP.TC ---
Today's Communication/Plan
-
IR guided transjugular biopsy tomorrow
hold Heparin
follow labs
compression therapy for LEs
Assessment / Plan
Assessment / Plan
Assessment:
Obstructive jaundice with compressive hepatic mass
- Concern for neoplastic biliary obstruction; likely hepatocellular carcinoma with AFP levels very high, CEA near ULN
- Presented with scleral icterus and jaundice; T. bili 15.6, T. bili 13, ALP 495, AST 161, ALT 81, INR 1.34, albumin 3.1 - trend labs daily
- Had recent outpatient ultrasound and MRCP that demonstrated concerning findings for obstruction/malignancy
- CT A/P with infiltrative mass of central liver, 5.9 x 4.5 cm, with lesion in the inferior left hepatic lobe, splenomegaly, small ascites
- Interventional radiology attempted paracentesis and liver biopsy on 02/27 though unsuccessful for both; Transjugular bx planned 03/04/25. If that fails, then EUS is next attempt
- Afebrile, hemodynamically stable; lower concern for cholangitis at this time
Mild prerenal CRISTIAN
- Secondary to Lasix 20 mg and ARB, in context of left portal vein compression and reduced circulatory state
- It did improve her edema however creatinine bumped from 1.0-1.3-1.5 as of 03/02
- No further doses of Lasix given; remains with good urine output; blood pressure soft
- No signs or symptoms of urinary obstruction
- Nephrology following
Bilateral lower extremity edema
Left portal vein compression
- Has bilateral lower extremity edema secondary to extrinsic compression of left portal vein by liver mass
- Lower extremity ultrasound negative for DVTs; echocardiogram without signs of cardiomyopathy
- Will need primary intervention into her liver mass once etiology is known
- Encourage compression stockings and leg elevation while resting
- Mild CRISTIAN with low-dose oral Lasix, avoid further diuresis
Rheumatoid arthritis
- Home regimen includes etanercept; per GI was recently switched to leflunomide
- No known associations such as CAD or interstitial lung disease
- No evidence of RA flare at this time
Primary hypertension
- No known history of hypertensive systemic disease
- Home regimen includes losartan 50 mg daily; held for CRISTIAN
- Blood pressure currently adequate on Midodrine
- Will continue to monitor
NIDDM
- No recent A1c; no known history of microvascular disease complication
- Diet controlled, does not appear to be on any home medications
- Blood sugars here have been slightly elevated though stable at other times
- Currently on ISS with Accu-Cheks
DVT ppx: holding heparin with TJ biopsy planned
Code: Full
Anticipated Discharge: > 48 hours
Subjective/Interval History
-
Date of Service: March 03, 2025
no complaints
Objective Data
-
Labs:
Laboratory Results
03/03/25
07:48
WBC 10.9 H
Hgb 12.4
Hct 35.3 L
Plt Count
PT 19.4 H
INR 1.61
APTT 42.0 H
Sodium 135
Potassium 4.8
Chloride 100
Carbon Dioxide 22
BUN 68 H
Creatinine 1.3 H
Glucose 168 H
Calcium 9.0
Total Bilirubin 23.6 H*
AST 179 H
ALT 100 H
Alkaline Phosphatase 512 H
Vital Signs:
Vital Signs
Temp Pulse Resp BP Pulse Ox
97.5 F 88 20 105/63 100
03/03/25 07:24 03/03/25 07:24 03/03/25 07:24 03/03/25 07:24 03/03/25 07:24
I&O
03/02/25 03/03/25 03/04/25
06:59 06:59 06:59
Intake Total 1440 / 1440 1200 / 1200
Balance 1440 / 1440 1200 / 1200
Physical Exam
-
General: No Apparent Distress
HEENT: Normocephalic and Atraumatic
Respiratory: Negative Wheezes
Cardiac: Regular Rhythm and S1/S2
Musculoskeletal: Edema, Right Lower Extrem and Edema, Left Lower Extrem
Skin: Jaundice
Neuro: AO x 3
Psych: Calm
Data Reviewed
-
Total Time Spent with Patient (in minutes): 42
Labs: Labs Reviewed by me
--- NOTE | 2025-03-03 11:51 | W.PN.NEPH.PH ---
Today's Communication / Plan
-
follow BMP
Assessment/Plan
-
59-year-old female past medical history of diabetes and rheumatoid arthritis who presents with 1 month of painless jaundice and new onset lower extremity edema and ascites. She has had multiple imaging done no obstructive mass. She has some
ascites but not enough for paracentesis. They were unable to find the lesion to perform the liver biopsy.
Renal consult obtained for acute kidney injury with normal renal function on admission has increased to 1.5.
She has a very poor effective arterial blood volume as she was getting diuretics which have been held she is anasarcic.
Impression.
Acute kidney injury with a creatinine of 1.5 from 0.9 on admission.
Cirrhosis
Jaundice
Mass with portal vein obstruction
Rheumatoid arthritis
Plan.
continue midodrine
continue albumin today
follow BMP
transvenous liver bx tomorrow
-
-
Date of Service: March 03, 2025
CC / HPI / ROS
-
Chief Complaint:
CRISTIAN
History of Present Illness:
CRISTIAN/Cr down to 1.3
BP stable on midodrine
bili up to 23.6
K better 4.8
Review of Systems:
no CP/SOB
Labs
-
Labs:
WBC 10.9 10^3/uL (4.8-10.8) H 03/03/25 07:48
RBC 3.85 10^6/uL (4.20-5.40) L 03/03/25 07:48
Hgb 12.4 g/dL (12.0-16.0) 03/03/25 07:48
Hct 35.3 % (37.0-47.0) L 03/03/25 07:48
Plt Count 10^3/uL (130-400) 03/03/25 07:48
Sodium 135 mmol/L (135-145) 03/03/25 07:48
Potassium 4.8 mmol/L (3.5-5.1) 03/03/25 07:48
Chloride 100 mmol/L (98-107) 03/03/25 07:48
Carbon Dioxide 22 mmol/L (22-30) 03/03/25 07:48
BUN 68 mg/dl (7-17) H 03/03/25 07:48
Creatinine 1.3 mg/dL (0.6-1.0) H 03/03/25 07:48
eGFR 47.08 03/03/25 07:48
Glucose 168 mg/dl (70-99) H 03/03/25 07:48
Calcium 9.0 mg/dl (8.4-10.2) 03/03/25 07:48
Izq-W-Ugcwmoafvry Pept 327 pg/ml 02/26/25 08:21
Albumin 3.8 g/dl (3.5-5.0) 03/03/25 07:48
Physical Exam
-
Vital Signs:
Vital Signs
Temp Pulse Resp BP Pulse Ox
97.5 F 88 20 105/63 100
03/03/25 07:24 03/03/25 07:24 03/03/25 07:24 03/03/25 07:24 03/03/25 07:24
Cardiovascular:: Regular rate and rhythm
Respiratory:: Bilateral: Coarse
Lung Excursion:: Normal
Abdomen:: Nontender and Soft
Bowel Sounds:: Normal
Extremity Edema:: +3: Bilateral:
Other Findings::
jaundiced
[2025-03-03] MEDS: AQUAMEPHYTON 5 MG SC (11:58)
[2025-03-03] MEDS: NOVOLOG FLEXPEN-LOW RESISTANCE 2 UNITS SC (12:49)
--- NOTE | 2025-03-03 13:23 | CM ---
Patient seen at bedside with
IR guided transjugular biopsy tomorrow
PLAN: Home, currently no needs, will continue to monitor
[2025-03-03 15:28] VITALS: BP 122/85
[2025-03-03 16:18] LABS: Glucose - Point of Care 379 mg/dl (70-99)
[2025-03-03] MEDS: NOVOLOG FLEXPEN-LOW RESISTANCE 5 UNITS SC (18:21)
[2025-03-03 21:21] LABS: Glucose - Point of Care 226 mg/dl (70-99)
[2025-03-03 22:14] VITALS: BP 102/64
[2025-03-03 22:15] VITALS: BP 102/64
[2025-03-03 22:40] VITALS: BP 106/62
[2025-03-04] VITALS (17 sets, daily range): BP systolic 85–119; BP diastolic 55–69
[2025-03-04 06:38] LABS: Hematocrit 34.2 % (37.0-47.0); Hemoglobin 12.1 g/dL (12.0-16.0); Mean Corp Hgb Conc. 35.4 g/dL (33.0-37.0); Mean Corpuscular Hgb 32.3 pg (27.0-31.0); Mean Corpuscular Volume 91.2 fL (81.0-99.0); Platelet Count 108 10^3/uL (130-400); Red Blood Cell Count 3.75 10^6/uL (4.20-5.40); White Blood Cell Count 10.4 10^3/uL (4.8-10.8)
[2025-03-04] MEDS: FLEXBUMIN 100 IV (06:43)
[2025-03-04 06:44] LABS: INR 1.66; PT 19.8 Sec (11.4-14.6)
[2025-03-04 06:45] LABS: APTT 34.6 Sec (23.4-35.0); Fibrinogen 309 MG/DL (199-459)
[2025-03-04 07:04] LABS: ALT (SGPT) 81 U/L (0-35); AST (SGOT) 132 U/L (14-36); Alkaline Phosphatase 474 U/L (38-126); Blood Urea Nitrogen 65 mg/dl (7-17); Carbon Dioxide 22 mmol/L (22-30); Chloride 102 mmol/L (98-107); Estimated Creatinine Clearance 58 ml/min; Glucose 173 mg/dl (70-99); Potassium 4.7 mmol/L (3.5-5.1); Sodium 135 mmol/L (135-145); eGFR 57.52
[2025-03-04 07:45] LABS: Direct Bilirubin 20.5 mg/dl (0.0-0.4)
[2025-03-04 07:46] LABS: Total Bilirubin 24.4 mg/dl (0.2-1.3)
[2025-03-04 08:11] LABS: Glucose - Point of Care 169 mg/dl (70-99)
[2025-03-04] MEDS: NOVOLOG FLEXPEN-LOW RESISTANCE SC ×2 (08:45→12:32)
[2025-03-04] MEDS: ProAmatine 5 MG PO ×3 (08:47→17:04)
[2025-03-04 11:37] LABS: Body Fluid Mononuclear 92.3 %; Body Fluid Polymorphonuclear 7.7 %; Body Fluid WBC 39 /CUMM
--- NOTE | 2025-03-04 11:50 | W.PN.ONC2 ---
Today's Communication / Plan
-
.
Impression
Impression
Obstructive Jaundice -Tbili 24
Hepatic Mass, AFP 90 is non-specific, nml CEA
BL LE Edema
Left Portal Vein Compression
CRISTIAN
Plan
Plan
IR guided liver biopsy planned today-follow for pathology
follow paracentesis cytology
discussed rising bili with GI and primary servic
Subjective/Objective
Subjective
off unit x 2
Vital Signs:
Vital Signs
Temp Pulse Resp BP Pulse Ox
97.6 F 86 19 113/66 99
03/04/25 10:00 03/04/25 11:06 03/04/25 11:06 03/04/25 11:06 03/04/25 11:06
Lab Results:
Laboratory Data
WBC 10.4 10^3/uL (4.8-10.8) 03/04/25 06:09
Hgb 12.1 g/dL (12.0-16.0) 03/04/25 06:09
Plt Count 108 10^3/uL (130-400) L D 03/04/25 06:09
PT 19.8 Sec (11.4-14.6) H 03/04/25 06:09
INR 1.66 03/04/25 06:09
APTT 34.6 Sec (23.4-35.0) 03/04/25 06:09
eGFR 57.52 03/04/25 06:09
[2025-03-04 11:54] LABS: Body Fluid Second Tech ASW
--- NOTE | 2025-03-04 11:54 | W.PN.NEPH.PH ---
Today's Communication / Plan
-
follow BMP
Assessment/Plan
-
59-year-old female past medical history of diabetes and rheumatoid arthritis who presents with 1 month of painless jaundice and new onset lower extremity edema and ascites. She has had multiple imaging done no obstructive mass. She has some
ascites but not enough for paracentesis. They were unable to find the lesion to perform the liver biopsy.
Renal consult obtained for acute kidney injury with normal renal function on admission has increased to 1.5.
She has a very poor effective arterial blood volume as she was getting diuretics which have been held she is anasarcic.
Impression.
Acute kidney injury with a creatinine of 1.5 from 0.9 on admission.
Cirrhosis
Jaundice
Mass with portal vein obstruction
Rheumatoid arthritis
Plan.
continue midodrine
continue albumin if paracentesis done
follow BMP
liver bx today
-
-
Date of Service: March 04, 2025
CC / HPI / ROS
-
Chief Complaint:
CRISTIAN
History of Present Illness:
CRISTIAN/Cr down to 1.1
BP stable on midodrine
bili up to 24.4
K better 4.7
for liver bx today
Review of Systems:
no CP/SOB
Labs
-
Labs:
WBC 10.4 10^3/uL (4.8-10.8) 03/04/25 06:09
RBC 3.75 10^6/uL (4.20-5.40) L 03/04/25 06:09
Hgb 12.1 g/dL (12.0-16.0) 03/04/25 06:09
Hct 34.2 % (37.0-47.0) L 03/04/25 06:09
Plt Count 108 10^3/uL (130-400) L D 03/04/25 06:09
Sodium 135 mmol/L (135-145) 03/04/25 06:09
Potassium 4.7 mmol/L (3.5-5.1) 03/04/25 06:09
Chloride 102 mmol/L (98-107) 03/04/25 06:09
Carbon Dioxide 22 mmol/L (22-30) 03/04/25 06:09
BUN 65 mg/dl (7-17) H 03/04/25 06:09
Creatinine 1.1 mg/dL (0.6-1.0) H 03/04/25 06:09
eGFR 57.52 03/04/25 06:09
Glucose 173 mg/dl (70-99) H 03/04/25 06:09
Calcium 9.0 mg/dl (8.4-10.2) 03/04/25 06:09
Ggn-K-Dggnxxxuiti Pept 327 pg/ml 02/26/25 08:21
Albumin 4.0 g/dl (3.5-5.0) 03/04/25 06:09
Physical Exam
-
Vital Signs:
Vital Signs
Temp Pulse Resp BP Pulse Ox
97.6 F 86 19 113/66 99
03/04/25 10:00 03/04/25 11:06 03/04/25 11:06 03/04/25 11:06 03/04/25 11:06
Cardiovascular:: Regular rate and rhythm
Respiratory:: Bilateral: CTA
Lung Excursion:: Normal
Abdomen:: Nontender and Soft
Bowel Sounds:: Normal
Extremity Edema:: +1: Bilateral:
[2025-03-04 12:24] LABS: Body Fluid Albumin < 1.0 g/dl; Body Fluid Amylase < 30 U/L; Body Fluid LDH 116 U/L; Body Fluid Protein < 2.0 g/dl
--- NOTE | 2025-03-04 13:08 | W.PN.HOSP.TC ---
Today's Communication/Plan
-
repeat MRCP
follow path
Assessment / Plan
Assessment / Plan
Assessment:
Obstructive jaundice with compressive hepatic mass
- Concern for neoplastic biliary obstruction; likely hepatocellular carcinoma with AFP levels very high, CEA near ULN
- Presented with scleral icterus and jaundice; T. bili 15.6, T. bili 13, ALP 495, AST 161, ALT 81, INR 1.34, albumin 3.1 - trend labs daily
- Had recent outpatient ultrasound and MRCP that demonstrated concerning findings for obstruction/malignancy.
- CT A/P with infiltrative mass of central liver, 5.9 x 4.5 cm, with lesion in the inferior left hepatic lobe, splenomegaly, small ascites
- No dilated ducts amenable to ERCP or PTBD per IR and GI but will repeat MRCP
- s/p IR guided paracentesis and liver biopsy 03/04. Follow path/Cytology
- Afebrile, hemodynamically stable; lower concern for cholangitis at this time
Mild prerenal CRISTIAN
- Secondary to Lasix 20 mg and ARB, in context of left portal vein compression and reduced circulatory state
- It did improve her edema however creatinine bumped from 1.0-1.3-1.5 as of 03/02
- No further doses of Lasix given; remains with good urine output; blood pressure soft. Continue Albumin and Midodrine.
- No signs or symptoms of urinary obstruction
- Nephrology following
Bilateral lower extremity edema
Left portal vein compression
- Has bilateral lower extremity edema secondary to extrinsic compression of left portal vein by liver mass
- Lower extremity ultrasound negative for DVTs; echocardiogram without signs of cardiomyopathy
- Will need primary intervention into her liver mass once etiology is known
- Encourage compression stockings and leg elevation while resting
- Mild CRISTIAN with low-dose oral Lasix, avoid further diuresis
Rheumatoid arthritis
- Home regimen includes etanercept; per GI was recently switched to leflunomide
- No known associations such as CAD or interstitial lung disease
- No evidence of RA flare at this time
Primary hypertension
- No known history of hypertensive systemic disease
- Home regimen includes losartan 50 mg daily; held for CRISTIAN
- Blood pressure currently adequate on Midodrine
- Will continue to monitor
NIDDM
- No recent A1c; no known history of microvascular disease complication
- Diet controlled, does not appear to be on any home medications
- Blood sugars here have been slightly elevated though stable at other times
- Currently on ISS with Accu-Cheks
Thrombocytopenia
- monitor
DVT ppx: holding heparin x 24 hours post liver biopsy per IR.
Code: Full
Anticipated Discharge: > 48 hours
Subjective/Interval History
-
Date of Service: March 04, 2025
s/p paracentesis with liver biopsy
feels tired
Objective Data
-
Labs:
Laboratory Results
03/04/25
06:09
WBC 10.4
Hgb 12.1
Hct 34.2 L
Plt Count 108 L D
PT 19.8 H
INR 1.66
APTT 34.6
Sodium 135
Potassium 4.7
Chloride 102
Carbon Dioxide 22
BUN 65 H
Creatinine 1.1 H
Glucose 173 H
Calcium 9.0
Total Bilirubin 24.4 H*
AST 132 H
ALT 81 H
Alkaline Phosphatase 474 H
Vital Signs:
Vital Signs
Temp Pulse Resp BP Pulse Ox
98.0 F 85 17 90/58 99
03/04/25 12:25 03/04/25 12:46 03/04/25 12:46 03/04/25 12:33 03/04/25 12:46
I&O
03/03/25 03/04/25 03/05/25
06:59 06:59 06:59
Intake Total 1200 / 1200 0 / 0
Balance 1200 / 1200 0 / 0
Physical Exam
-
General: No Apparent Distress
HEENT: Normocephalic and Atraumatic
Respiratory: Negative Wheezes
Cardiac: Regular Rhythm and S1/S2
GI: Soft and Nontender
Genito-urinary: No Costovertebral Tender
Skin: Jaundice
Neuro: AO x 3
Hematologic / Lymphatic: No Lymphadenopathy
Psych: Calm
Data Reviewed
-
Total Time Spent with Patient (in minutes): 42
Labs: Labs Reviewed by me
--- NOTE | 2025-03-04 13:15 | CM ---
patient seen today
IR guided liver biopsy
PLAN: Home, currently no needs
[2025-03-04 14:19] LABS: Glucose - Point of Care 161 mg/dl (70-99)
[2025-03-04 17:05] LABS: Glucose - Point of Care 332 mg/dl (70-99)
[2025-03-04] MEDS: NOVOLOG FLEXPEN-LOW RESISTANCE 4 UNITS SC (17:33)
[2025-03-04 21:56] LABS: Glucose - Point of Care 323 mg/dl (70-99)
[2025-03-05 03:00] VITALS: BP 106/64
[2025-03-05] MEDS: ROXICODONE 5 MG PO (04:28)
[2025-03-05 06:38] LABS: Hematocrit 31.8 % (37.0-47.0); Hemoglobin 10.9 g/dL (12.0-16.0); Mean Corp Hgb Conc. 34.3 g/dL (33.0-37.0); Mean Corpuscular Hgb 31.8 pg (27.0-31.0); Mean Corpuscular Volume 92.7 fL (81.0-99.0); Mean Platelet Volume 11.2 fL (7.4-10.4); Platelet Count 105 10^3/uL (130-400); Red Blood Cell Count 3.43 10^6/uL (4.20-5.40); Red Cell Dist. Width 17.4 % (11.5-14.5); White Blood Cell Count 11.4 10^3/uL (4.8-10.8)
[2025-03-05 07:12] LABS: Blood Urea Nitrogen 62 mg/dl (7-17); Calcium 8.8 mg/dl (8.4-10.2); Carbon Dioxide 22 mmol/L (22-30); Chloride 102 mmol/L (98-107); Estimated Creatinine Clearance 53 ml/min; Glucose 156 mg/dl (70-99); Potassium 4.8 mmol/L (3.5-5.1); Sodium 135 mmol/L (135-145); eGFR 51.82
[2025-03-05 07:25] VITALS: BP 108/59
[2025-03-05 07:58] LABS: Glucose - Point of Care 137 mg/dl (70-99)
[2025-03-05] MEDS: NOVOLOG FLEXPEN-LOW RESISTANCE SC ×2 (08:23→21:05)
[2025-03-05] MEDS: ProAmatine 5 MG PO ×3 (08:26→16:07)
[2025-03-05 09:11] LABS: ALT (SGPT) 65 U/L (0-35); AST (SGOT) 113 U/L (14-36); Albumin 3.5 g/dl (3.5-5.0); Alkaline Phosphatase 410 U/L (38-126); Total Protein 6.2 g/dl (6.3-8.2)
[2025-03-05 09:26] LABS: Total Bilirubin 25.4 mg/dl (0.2-1.3)
[2025-03-05 11:06] VITALS: BP 92/55
[2025-03-05 11:41] LABS: Glucose - Point of Care 225 mg/dl (70-99)
--- NOTE | 2025-03-05 11:41 | W.PN.HOSP.TC ---
Today's Communication/Plan
-
Start IV Heparin for thrombus burden - monitor for changes in hb or decompensation with finding of small central liver hemorrhage. d/w IR and Oncology
GI To review MRCP for any biliary intervention
Assessment / Plan
Assessment / Plan
Assessment:
Obstructive jaundice with compressive hepatic mass
- Concern for neoplastic biliary obstruction; likely hepatocellular carcinoma with AFP levels very high, CEA near ULN
- Presented with scleral icterus and jaundice; T. bili 15.6, T. bili 13, ALP 495, AST 161, ALT 81, INR 1.34, albumin 3.1 - trend labs daily
- Had recent outpatient ultrasound and MRCP that demonstrated concerning findings for obstruction/malignancy.
- CT A/P with infiltrative mass of central liver, 5.9 x 4.5 cm, with lesion in the inferior left hepatic lobe, splenomegaly, small ascites
- s/p IR guided paracentesis and liver biopsy 03/04. Follow path/Cytology
- No dilated ducts amenable to ERCP or PTBD per IR and GI
- repeat MRCP 03/05: Progressive intrahepatic biliary ductal dilatation. GI to review
high-grade bland thrombus with near complete occlusion of the portal vein and central right portal vein. Persistent occlusion of the left portal vein.
- discussed with Oncology service
- start IV Heparin - requires intensive monitoring of PTTs
Portal venous gas
- likely related to recent Liver biopsy; reviewed with IR
Small, 8mm focus of T1 hyperintensity near the radha hepatis, possibly reflecting hemorrhage
- review with IR, likely tumor related hemorrhage. Biopsy was performed at inferior L lobe mass
Mild prerenal CRISTIAN
- Secondary to Lasix 20 mg and ARB, in context of left portal vein compression and reduced circulatory state
- It did improve her edema however creatinine bumped from 1.0-1.3-1.5 as of BMP 03/02
- No further doses of Lasix given; remains with good urine output; blood pressure soft. Continue Albumin and Midodrine.
- No signs or symptoms of urinary obstruction
- Nephrology following
Bilateral lower extremity edema
Left portal vein compression
- Has bilateral lower extremity edema secondary to extrinsic compression of left portal vein by liver mass
- Lower extremity ultrasound negative for DVTs; echocardiogram without signs of cardiomyopathy
- Will need primary intervention into her liver mass once etiology is known
- Encourage compression stockings and leg elevation while resting
- Mild CRISTIAN with low-dose oral Lasix, avoid further diuresis
Rheumatoid arthritis
- Home regimen includes etanercept; per GI was recently switched to leflunomide
- No known associations such as CAD or interstitial lung disease
- No evidence of RA flare at this time
Primary hypertension
- No known history of hypertensive systemic disease
- Home regimen includes losartan 50 mg daily; held for CRISTIAN
- Blood pressure currently adequate on Midodrine
- Will continue to monitor
NIDDM
- No recent A1c; no known history of microvascular disease complication
- Diet controlled, does not appear to be on any home medications
- Blood sugars here have been slightly elevated though stable at other times
- Currently on ISS with Accu-Cheks
Thrombocytopenia
- monitor
DVT ppx: IV Heparin
Code: Full
Anticipated Discharge: > 48 hours
Subjective/Interval History
-
Date of Service: March 05, 2025
no new complaints
Objective Data
-
Labs:
Laboratory Results
03/05/25
05:44
WBC 11.4 H
Hgb 10.9 L
Hct 31.8 L
Plt Count 105 L
Sodium 135
Potassium 4.8
Chloride 102
Carbon Dioxide 22
BUN 62 H
Creatinine 1.2 H
Glucose 156 H
Calcium 8.8
Total Bilirubin 25.4 H*
AST 113 H
ALT 65 H
Alkaline Phosphatase 410 H
Vital Signs:
Vital Signs
Temp Pulse Resp BP Pulse Ox
97.5 F 94 17 92/55 96
03/05/25 11:06 03/05/25 11:06 03/05/25 11:06 03/05/25 11:06 03/05/25 11:06
I&O
03/04/25 03/05/25 03/06/25
06:59 06:59 06:59
Intake Total 0 / 0 1460 / 1460
Balance 0 / 0 1460 / 1460
Physical Exam
-
General: No Apparent Distress
HEENT: Normocephalic and Atraumatic
Respiratory: Negative Wheezes
Cardiac: Regular Rhythm and S1/S2
GI: Soft and Nontender
Musculoskeletal: No Edema
Skin: Jaundice
Neuro: AO x 3
Hematologic / Lymphatic: No Lymphadenopathy
Psych: Calm
Data Reviewed
-
Total Time Spent with Patient (in minutes): 51
Labs: Labs Reviewed by me
[2025-03-05] MEDS: NOVOLOG FLEXPEN-LOW RESISTANCE 2 UNITS SC (12:42)
--- NOTE | 2025-03-05 13:28 | W.PN.NEPH.PH ---
Today's Communication / Plan
-
follow labs
Assessment/Plan
-
59-year-old female past medical history of diabetes and rheumatoid arthritis who presents with 1 month of painless jaundice and new onset lower extremity edema and ascites. She has had multiple imaging done no obstructive mass. She has some
ascites but not enough for paracentesis. They were unable to find the lesion to perform the liver biopsy.
Renal consult obtained for acute kidney injury with normal renal function on admission has increased to 1.5.
She has a very poor effective arterial blood volume as she was getting diuretics which have been held she is anasarcic.
Impression.
Acute kidney injury with a creatinine of 1.5 from 0.9 on admission.
Cirrhosis
Jaundice
Mass with portal vein obstruction
Rheumatoid arthritis
Plan.
stable renal function cr 1.2
bp soft, continue midodrine
completed albumin , s/p liver biopsy
new portal vein thrombus-heparin gtt started per primary
follow BMP
-
-
Date of Service: March 05, 2025
CC / HPI / ROS
-
Chief Complaint:
CRISTIAN
History of Present Illness:
CRISTIAN/Cr 1.2 slightly up
BP stable on midodrine
bili up to 25.4
Review of Systems:
no CP/SOB
Labs
-
Labs:
WBC 11.4 10^3/uL (4.8-10.8) H 03/05/25 05:44
RBC 3.43 10^6/uL (4.20-5.40) L 03/05/25 05:44
Hgb 10.9 g/dL (12.0-16.0) L 03/05/25 05:44
Hct 31.8 % (37.0-47.0) L 03/05/25 05:44
Plt Count 105 10^3/uL (130-400) L 03/05/25 05:44
Sodium 135 mmol/L (135-145) 03/05/25 05:44
Potassium 4.8 mmol/L (3.5-5.1) 03/05/25 05:44
Chloride 102 mmol/L (98-107) 03/05/25 05:44
Carbon Dioxide 22 mmol/L (22-30) 03/05/25 05:44
BUN 62 mg/dl (7-17) H 03/05/25 05:44
Creatinine 1.2 mg/dL (0.6-1.0) H 03/05/25 05:44
eGFR 51.82 03/05/25 05:44
Glucose 156 mg/dl (70-99) H 03/05/25 05:44
Calcium 8.8 mg/dl (8.4-10.2) 03/05/25 05:44
Vum-L-Vqkspkxfjgu Pept 327 pg/ml 02/26/25 08:21
Albumin 3.5 g/dl (3.5-5.0) 03/05/25 05:44
Physical Exam
-
Vital Signs:
Vital Signs
Temp Pulse Resp BP Pulse Ox
97.5 F 97 17 96/58 96
03/05/25 11:06 03/05/25 12:41 03/05/25 11:06 03/05/25 12:41 03/05/25 11:06
Cardiovascular:: Regular rate and rhythm
Respiratory:: Bilateral: CTA
Lung Excursion:: Normal
Abdomen:: Nontender and Soft
Bowel Sounds:: Normal
Extremity Edema:: +1: Bilateral:
Geller Catheter: No
[2025-03-05 13:29] LABS: APTT 33.3 Sec (23.4-35.0)
--- NOTE | 2025-03-05 13:50 | CM ---
Patient seen at bedside.
liver biopsy & paracentesis completed 03/04
per notes patient to start IV heparin
PLAN: home, currently no needs, CM to continue to follow
[2025-03-05 13:58] LABS: INR 1.45; PT 18.2 Sec (11.4-14.6)
[2025-03-05 14:41] LABS: % Basophils 0.3 % (0-2); % Eosinophils 0.7 % (0-6); % Immature Granulocytes 1.8 % (0-0.5); % Lymphocytes 4.4 % (20.5-51.1); % Monocytes 6.3 % (1.7-9.3); % Neutrophils 86.5 % (42.2-75.2); Absolute Eosinophils 0.1 10^3/uL (0-0.7); Absolute Immature Granulocytes 0.2 10^3/uL (0-0.05); Absolute Lymphocytes 0.5 10^3/uL (1.2-3.4); Absolute Monocytes 0.7 10^3/uL (0.1-0.6); Absolute Neutrophils 10.1 10^3/uL (1.4-6.5); Hematocrit 37.1 % (37.0-47.0); Hemoglobin 12.8 g/dL (12.0-16.0); Mean Corp Hgb Conc. 34.5 g/dL (33.0-37.0); Mean Corpuscular Hgb 32.3 pg (27.0-31.0); Mean Corpuscular Volume 93.7 fL (81.0-99.0); Mean Platelet Volume 11.6 fL (7.4-10.4); Nucleated Red Blood Cells % 0 %; Platelet Count 114 10^3/uL (130-400); Red Blood Cell Count 3.96 10^6/uL (4.20-5.40); Red Cell Dist. Width 17.3 % (11.5-14.5); White Blood Cell Count 11.7 10^3/uL (4.8-10.8)
[2025-03-05 14:55] VITALS: BP 112/55
[2025-03-05] MEDS: HEPARIN 25000 UNITS/250 ML IV (15:02)
--- NOTE | 2025-03-05 16:27 | W.PN.GI.CBS2 ---
Today's Communication / Plan
-
Will sign off. Please call us with any questions or if we can help in any way
Assessment / Plan
-
Pt is a 59yo with hx HTN, hypercholesterolemia, NIDDM (recently stopped Rybelsus with onset of symptoms) , RA (prior Leflunomide stopped 1 month ago with onset of symptoms and current Enbrel) with onset nausea/abdominal pain followed by jaundice
then lower ext edema. She had work up with PCP and sent to with abnormal imaging. 02/14 US with multiple liver lesions concern for mets. main and right portal vein patent, left portal vein flow not clear. thrombosis not excluded. She proceeded
for MRI abdomen with hypoenhancement of central liver concern for malignant process with compression of left portal vein with no flow. celiac chain adenopathy and 3 small hypervascular foci right hepatic lobe, hemangioma, arterioportal shunts or
HCC, no duct dilation. Pt also completed CT on admission with concern for infiltrative liver mass with occlusion of left portal vein, splenomegaly, small volume ascites with portal HTN, SB thickening with congestive arthropathy or ascites.
Findings are overall similar to recent prior MRI and concerning for malignancy such as hepatocellular carcinoma or cholangiocarcinoma. Metastasis are also possibility. On admission labs notable for WBC 12.6, hbg 12.3, platelets 125, INR 1.34, Na
133,creat 0.6, glucose 192, bili 15.6, d bili 13, AST 167, ALT 81, alk phos 495 albumin 3.1. Tumor marker- AFP, CEA, and TSH pending.
-new onset of abdominal pain, nausea, jaundice then LE swelling over last month
-elevated LFT's
-abnormal imaging with small amount ascites, concern for left portal vein occlusion, liver mass with possible HCC, or cholangio with mets
-LE swelling
-hypoalbuminemia
other med problems:
-NIDDM with recent Rybelsus use
-RA with recent prior Leflunomide stopped 1 month ago with onset of symptoms and current Enbrel use
-HTN
-hypercholesterolemia
PLAN:
--I reviewed her imaging from today with the MRI on 03/05/2025 as well as the liver biopsy CT scan on 03/04/2025. Unfortunately neither of these scans show any area in the bile ducts that would be amendable to endoscopic drainage. Her high bilirubin
of 25 is unfortunately likely secondary to a large tumor burden.
etiology of symptoms related to infiltrative process such as HCC/cholangio.
I did also discuss this with Dr. Munoz and he is in agreement that unfortunately there is no endoscopic intervention/drainage possible
Biopsy from her liver still pending, cytology from the paracentesis is also pending
Patient does have an elevated AFP of 91
Please call us back if there is anything we can do to help. I did go over this with the patient, unclear if the severity of this is actually registering
Subjective
Subjective
Date of Service: March 05, 2025
Patient denies any abdominal pain
Objective
Data Reviewed
Laboratory Data:
Laboratory Results
03/05/25 14:30
03/05/25 05:44
Laboratory Results
PT 18.2 Sec (11.4-14.6) H 03/05/25 12:50
INR 1.45 03/05/25 12:50
APTT 33.3 Sec (23.4-35.0) 03/05/25 12:50
Magnesium 2.2 mg/dl (1.6-2.3) 02/26/25 08:21
Total Bilirubin 25.4 mg/dl (0.2-1.3) H* 03/05/25 05:44
AST 113 U/L (14-36) H 03/05/25 05:44
ALT 65 U/L (0-35) H 03/05/25 05:44
Alkaline Phosphatase 410 U/L (38-126) H 03/05/25 05:44
Amylase 47 U/L (30-110) 02/25/25 16:56
Lipase 112 U/L (23-300) 02/25/25 16:56
Vital Signs and I&O:
Vital Signs
Temp Pulse Resp BP Pulse Ox
97.4 F 93 17 112/55 99
03/05/25 14:55 03/05/25 16:07 03/05/25 14:55 03/05/25 16:07 03/05/25 14:55
I&O
03/04/25 03/05/25 03/06/25
06:59 06:59 06:59
Intake Total 0 / 0 1460 / 1460
Balance 0 / 0 1460 / 1460
Physical Exam
Physical Exam
HEENT: Anicteric (Icteric significantly)
Cardiology: Normal Sinus Rhythm
GI: Soft, Non Distended and Non Tender
Neuro: Non Focal
[2025-03-05 17:00] LABS: Glucose - Point of Care 269 mg/dl (70-99)
[2025-03-05] MEDS: ZOFRAN 4 MG IV (17:00)
[2025-03-05 21:03] LABS: Glucose - Point of Care 259 mg/dl (70-99)
[2025-03-05 21:49] LABS: APTT > 200 Sec (23.4-35.0)
--- NOTE | 2025-03-05 22:00 | PTCARENOTE ---
Notified house Provider of PTT>200.
[2025-03-05 23:16] VITALS: BP 100/56
[2025-03-06 06:39] LABS: Hemoglobin 11.6 g/dL (12.0-16.0); Mean Corp Hgb Conc. 35.2 g/dL (33.0-37.0); Mean Corpuscular Volume 90.9 fL (81.0-99.0); Mean Platelet Volume 12.2 fL (7.4-10.4); Platelet Count 126 10^3/uL (130-400); Red Blood Cell Count 3.63 10^6/uL (4.20-5.40); Red Cell Dist. Width 17.9 % (11.5-14.5); White Blood Cell Count 13.6 10^3/uL (4.8-10.8)
[2025-03-06 06:54] LABS: APTT 164.8 Sec (23.4-35.0)
[2025-03-06 07:18] LABS: Total Bilirubin 26.8 mg/dl (0.2-1.3)
[2025-03-06 07:19] LABS: ALT (SGPT) 68 U/L (0-35); AST (SGOT) 122 U/L (14-36); Alkaline Phosphatase 438 U/L (38-126); Blood Urea Nitrogen 73 mg/dl (7-17); Calcium 8.8 mg/dl (8.4-10.2); Carbon Dioxide 25 mmol/L (22-30); Chloride 102 mmol/L (98-107); Estimated Creatinine Clearance 49 ml/min; Glucose 201 mg/dl (70-99); Potassium 4.7 mmol/L (3.5-5.1); Sodium 134 mmol/L (135-145); Total Protein 5.9 g/dl (6.3-8.2); eGFR 47.08
[2025-03-06 07:36] VITALS: BP 98/68
[2025-03-06 08:09] LABS: Glucose - Point of Care 183 mg/dl (70-99)
[2025-03-06] MEDS: NOVOLOG FLEXPEN-LOW RESISTANCE 1 UNITS SC (08:44)
[2025-03-06] MEDS: ProAmatine 5 MG PO ×3 (08:49→16:13)
--- NOTE | 2025-03-06 08:51 | W.PN.ONC2 ---
Today's Communication / Plan
-
.
Impression
Impression
Obstructive Jaundice with total bili rising to 26 today. MRCP review by Dr. Fiore and Dr. Munoz, unfortunately did not show any area in the bile ducts that would be amendable to endoscopic drainage and that elevated bilirubin is a result of tumor burden
Hepatic Mass, AFP 90 is non-specific, nml CEA
BL LE Edema
Left Portal Vein Compression
CRISTIAN
Plan
Plan
preliminary path reported by pathology shows adenocarcinoma reviewed with patient with c/f cholangiocarcinoma, pancreatic, or upper GI tract stage IV malignancy. Dr. Sahu discussed risk/benefit of cisplatin/immunotherapy with palliative intent
treatment outpatient upon hospital discharge. Her goals remain restorative and would like to pursue systemic therapy. Request port placement to expedite outpatient treatment.
heparin gtt can be transition to DOAC at d/c
follow up paracentesis cytology. We will arrange for OP paracentesis prn if needed
discussed plan with hospitalist
Subjective/Objective
Subjective
no new complaints
Vital Signs:
Vital Signs
Temp Pulse Resp BP Pulse Ox
97.6 F 94 18 98/68 98
03/06/25 07:36 03/06/25 07:36 03/06/25 07:36 03/06/25 07:36 03/06/25 07:36
Lab Results:
Laboratory Data
WBC 13.6 10^3/uL (4.8-10.8) H 03/06/25 05:46
Hgb 11.6 g/dL (12.0-16.0) L 03/06/25 05:46
Plt Count 126 10^3/uL (130-400) L 03/06/25 05:46
PT 18.2 Sec (11.4-14.6) H 03/05/25 12:50
INR 1.45 03/05/25 12:50
APTT 164.8 Sec (23.4-35.0) H* 03/06/25 05:46
eGFR 47.08 03/06/25 05:46
Physical Exam
HEENT: Jaundice
--- NOTE | 2025-03-06 11:03 | PN.CDI ---
CDI
- -
CDI:
Physician Documentation Request
Admit Date: 02/25/25 20:36
Dear Doctor,
Please review the following and provide your response in the progress notes.
Clinical Indicators:
Pt admitted with hepatic mass/obstructive jaundice /ascites
Nephrology consult, 'Acute kidney injury with a creatinine of 1.5 from 0.9 on admission.Cirrhosis Jaundice...Acuity multifactorial secondary to poor effective arterial blood volume...Possible hepatorenal.'
Please update the status of hepatorenal documented in nephrology consult:
Hepatorenal syndrome - a valid diagnosis /still being monitored//treated
Hepatorenal syndrome-ruled out
Other ( please specify)
Use of terms such as suspected, likely, concern for, or probable (associated with a specific diagnosis that is being evaluated, monitored, or treated as if it exists) are acceptable and can be coded in the inpatient setting, when documented at the
time of discharge.
Thank you,
Verenice Mendieta RN
CDI Specialist
[facility] [employer]
Please use your independent medical judgment in providing your response.
--- NOTE | 2025-03-06 11:17 | W.PN.HOSP.TC ---
Today's Communication/Plan
-
edmond Eliquis
DC planning in 24 hours
Assessment / Plan
Assessment / Plan
Assessment:
Obstructive jaundice with compressive hepatic mass
- Concern for neoplastic biliary obstruction; likely hepatocellular carcinoma with AFP levels very high, CEA near ULN
- Presented with scleral icterus and jaundice; T. bili 15.6, T. bili 13, ALP 495, AST 161, ALT 81, INR 1.34, albumin 3.1 - trend labs daily
- Had recent outpatient ultrasound and MRCP that demonstrated concerning findings for obstruction/malignancy.
- CT A/P with infiltrative mass of central liver, 5.9 x 4.5 cm, with lesion in the inferior left hepatic lobe, splenomegaly, small ascites
- s/p IR guided paracentesis and liver biopsy 03/04. Follow path - verbally reported as either pancreatic or biliary adenocarcinoma but await formal report.
- No dilated ducts amenable to ERCP or PTBD per IR and GI
high-grade bland thrombus with near complete occlusion of the portal vein and central right portal vein. Persistent occlusion of the left portal vein.
- discussed with Oncology service
- continue IV Heparin - requires intensive monitoring of PTTs
- if tolerated, transition to Eliquis BID
Portal venous gas
- likely related to recent Liver biopsy; reviewed with IR
Small, 8mm focus of T1 hyperintensity near the radha hepatis, possibly reflecting hemorrhage
- review with IR, likely tumor related hemorrhage. Biopsy was performed at inferior L lobe mass
Mild prerenal CRISTIAN
- Secondary to Lasix 20 mg and ARB, in context of left portal vein compression and reduced circulatory state
- It did improve her edema however creatinine bumped from 1.0-1.3-1.5 as of BMP 03/02
- No further doses of Lasix given; remains with good urine output; blood pressure soft. Continue Albumin and Midodrine.
- No signs or symptoms of urinary obstruction
- Nephrology following
Bilateral lower extremity edema
Left portal vein compression
- Has bilateral lower extremity edema secondary to extrinsic compression of left portal vein by liver mass
- Lower extremity ultrasound negative for DVTs; echocardiogram without signs of cardiomyopathy
- Will need primary intervention into her liver mass once etiology is known
- Encourage compression stockings and leg elevation while resting
- Mild CRISTIAN with low-dose oral Lasix, avoid further diuresis
Rheumatoid arthritis
- Home regimen includes etanercept; per GI was recently switched to leflunomide
- No known associations such as CAD or interstitial lung disease
- No evidence of RA flare at this time
Primary hypertension
- No known history of hypertensive systemic disease
- Home regimen includes losartan 50 mg daily; held for CRISTIAN
- Blood pressure currently adequate on Midodrine
- Will continue to monitor
NIDDM
- No recent A1c; no known history of microvascular disease complication
- Diet controlled, does not appear to be on any home medications
- Blood sugars here have been slightly elevated though stable at other times
- Currently on ISS with Accu-Cheks
Thrombocytopenia
- monitor
DVT ppx: IV Heparin
Code: Full
Anticipated Discharge: Within 24 hours
Subjective/Interval History
-
Date of Service: March 06, 2025
resting comfortably no complaints
Objective Data
-
Labs:
Laboratory Results
03/06/25 03/06/25
05:46 13:00
WBC 13.6 H
Hgb 11.6 L
Hct 33.0 L
Plt Count 126 L
APTT 164.8 H* Pending
Sodium 134 L
Potassium 4.7
Chloride 102
Carbon Dioxide 25
BUN 73 H
Creatinine 1.3 H
Glucose 201 H
Calcium 8.8
Total Bilirubin 26.8 H*
AST 122 H
ALT 68 H
Alkaline Phosphatase 438 H
Vital Signs:
Vital Signs
Temp Pulse Resp BP Pulse Ox
97.6 F 94 18 98/68 98
03/06/25 07:36 03/06/25 07:36 03/06/25 07:36 03/06/25 07:36 03/06/25 07:36
I&O
03/05/25 03/06/25 03/07/25
06:59 06:59 06:59
Intake Total 1460 / 1460 1200 / 1200
Balance 1460 / 1460 1200 / 1200
Physical Exam
-
General: No Apparent Distress
HEENT: Normocephalic and Atraumatic
Respiratory: Negative Wheezes
Cardiac: Regular Rhythm and S1/S2
GI: Soft and Nontender
Skin: Jaundice
Neuro: AO x 3
Psych: Calm
Data Reviewed
-
Total Time Spent with Patient (in minutes): 45
Labs: Labs Reviewed by me
[2025-03-06 11:36] LABS: Glucose - Point of Care 280 mg/dl (70-99)
--- NOTE | 2025-03-06 12:34 | CM ---
CM reviewed chart, received consult for cost of Eliquis, 5mg BID. CM spoke with patients prescription plan ([facility]), for 30 day supply, $30.98, TT to Hospitalist with update. Patient seen bedside, aware of cost, comfortable with cost, also
provided with copy. CM will continue to be available for patient for all discharge planning needs.
Plan; home with spouse
--- NOTE | 2025-03-06 13:10 | W.PN.NEPH.PH ---
Addendum entered and electronically signed by Geovanna Grewal MD 03/10/25 12:45:
For CDI-can not rule out if she has HRS.
Original Note:
Today's Communication / Plan
-
IV alb course again
Assessment/Plan
-
59-year-old female past medical history of diabetes and rheumatoid arthritis who presents with 1 month of painless jaundice and new onset lower extremity edema and ascites. She has had multiple imaging done no obstructive mass. She has some
ascites but not enough for paracentesis. They were unable to find the lesion to perform the liver biopsy.
Renal consult obtained for acute kidney injury with normal renal function on admission has increased to 1.5.
She has a very poor effective arterial blood volume as she was getting diuretics which have been held she is anasarcic.
Impression.
Acute kidney injury with a creatinine of 1.5 from 0.9 on admission.
Cirrhosis
Jaundice
Mass with portal vein obstruction
Rheumatoid arthritis
Plan:
cr slightly up today at 1.3, reports subjectively non oliguric
will give alb course, HRS in differential , U na 6
bp soft, continue midodrine
s/p liver biopsy-adenocarcinoma bilairy vs pancreas vs Gut
new portal vein thrombus-on AC , need port
follow BMP
d/w pt and primary
-
-
Date of Service: March 06, 2025
CC / HPI / ROS
-
Chief Complaint:
CRISTIAN
History of Present Illness:
CRISTIAN/Cr 1.3 slightly up
BP soft on midodrine
bili up to 26.8
Review of Systems:
no CP/SOB
no dysuria
Labs
-
Labs:
WBC 13.6 10^3/uL (4.8-10.8) H 03/06/25 05:46
RBC 3.63 10^6/uL (4.20-5.40) L 03/06/25 05:46
Hgb 11.6 g/dL (12.0-16.0) L 03/06/25 05:46
Hct 33.0 % (37.0-47.0) L 03/06/25 05:46
Plt Count 126 10^3/uL (130-400) L 03/06/25 05:46
Sodium 134 mmol/L (135-145) L 03/06/25 05:46
Potassium 4.7 mmol/L (3.5-5.1) 03/06/25 05:46
Chloride 102 mmol/L (98-107) 03/06/25 05:46
Carbon Dioxide 25 mmol/L (22-30) 03/06/25 05:46
BUN 73 mg/dl (7-17) H 03/06/25 05:46
Creatinine 1.3 mg/dL (0.6-1.0) H 03/06/25 05:46
eGFR 47.08 03/06/25 05:46
Glucose 201 mg/dl (70-99) H 03/06/25 05:46
Calcium 8.8 mg/dl (8.4-10.2) 03/06/25 05:46
Hxp-E-Iihbmoioseg Pept 327 pg/ml 02/26/25 08:21
Albumin 3.0 g/dl (3.5-5.0) L 03/06/25 05:46
Physical Exam
-
Vital Signs:
Vital Signs
Temp Pulse Resp BP Pulse Ox
97.6 F 94 18 98/68 98
03/06/25 07:36 03/06/25 07:36 03/06/25 07:36 03/06/25 07:36 03/06/25 07:36
Cardiovascular:: Regular rate and rhythm
Respiratory:: Bilateral: CTA
Lung Excursion:: Normal
Abdomen:: Nontender and Soft
Bowel Sounds:: Normal
Extremity Edema:: +2: Bilateral:
Geller Catheter: No
[2025-03-06 13:34] LABS: APTT 116.5 Sec (23.4-35.0)
[2025-03-06] MEDS: NOVOLOG FLEXPEN-LOW RESISTANCE 3 UNITS SC (13:57)
[2025-03-06] MEDS: HEPARIN 25000 UNITS/250 ML IV (13:59)
[2025-03-06 16:00] VITALS: BP 92/61
[2025-03-06 16:01] VITALS: BP 106/57
[2025-03-06] MEDS: FLEXBUMIN 100 IV ×2 (16:01→21:43)
[2025-03-06 17:04] LABS: Glucose - Point of Care 312 mg/dl (70-99)
[2025-03-06] MEDS: NOVOLOG FLEXPEN-LOW RESISTANCE 4 UNITS SC (17:41)
[2025-03-06 18:02] VITALS: BP 119/72
[2025-03-06] MEDS: GLUCOTROL 5 MG PO (18:15)
[2025-03-06 20:12] LABS: APTT 52.7 Sec (23.4-35.0)
[2025-03-06 21:34] LABS: Glucose - Point of Care 137 mg/dl (70-99)
[2025-03-06 23:15] VITALS: BP 95/62
[2025-03-07 02:28] LABS: Hematocrit 29.7 % (37.0-47.0); Hemoglobin 10.5 g/dL (12.0-16.0); Mean Corp Hgb Conc. 35.4 g/dL (33.0-37.0); Mean Corpuscular Hgb 31.9 pg (27.0-31.0); Mean Corpuscular Volume 90.3 fL (81.0-99.0); Mean Platelet Volume 11.5 fL (7.4-10.4); Platelet Count 132 10^3/uL (130-400); Red Blood Cell Count 3.29 10^6/uL (4.20-5.40); Red Cell Dist. Width 17.5 % (11.5-14.5); White Blood Cell Count 16.4 10^3/uL (4.8-10.8)
[2025-03-07 02:38] LABS: APTT 113.1 Sec (23.4-35.0)
[2025-03-07 03:27] LABS: ALT (SGPT) 65 U/L (0-35); AST (SGOT) 118 U/L (14-36); Albumin 3.7 g/dl (3.5-5.0); Alkaline Phosphatase 391 U/L (38-126); Blood Urea Nitrogen 73 mg/dl (7-17); Calcium 9.1 mg/dl (8.4-10.2); Carbon Dioxide 22 mmol/L (22-30); Chloride 101 mmol/L (98-107); Estimated Creatinine Clearance 53 ml/min; Glucose 86 mg/dl (70-99); Potassium 4.5 mmol/L (3.5-5.1); Sodium 134 mmol/L (135-145); Total Protein 6.5 g/dl (6.3-8.2); eGFR 51.82
[2025-03-07 03:52] LABS: Total Bilirubin 27.3 mg/dl (0.2-1.3)
[2025-03-07] MEDS: FLEXBUMIN 100 IV (05:03)
[2025-03-07] MEDS: ZOFRAN 4 MG IV (05:09)
[2025-03-07 07:47] VITALS: BP 107/68
[2025-03-07] MEDS: NOVOLOG FLEXPEN-LOW RESISTANCE SC (07:53)
[2025-03-07] MEDS: GLUCOTROL 5 MG PO (07:54)
[2025-03-07 07:55] LABS: Glucose - Point of Care 135 mg/dl (70-99)
[2025-03-07] MEDS: ProAmatine 5 MG PO ×2 (07:55→14:12)
[2025-03-07] MEDS: ELIQUIS 10 MG PO (08:46)
--- NOTE | 2025-03-07 09:19 | W.PN.ONC2 ---
Documented by User: DAI Ascencio 03/07/25 12:29
Today's Communication / Plan
-
.
Impression
Impression
Obstructive Jaundice with total bili rising to 26 today. MRCP review by Dr. Fioer and Dr. Munoz, unfortunately did not show any area in the bile ducts that would be amendable to endoscopic drainage and that elevated bilirubin is a result of tumor burden
Hepatic Mass, AFP 90 is non-specific, nml CEA
BL LE Edema
portal vein with bland thrombus
CRISTIAN
Plan
Plan
preliminary path reported by pathology shows adenocarcinoma reviewed with patient and 03/[address] Sahu with c/f cholangiocarcinoma, pancreatic, or upper GI tract stage IV malignancy. Dr. Sahu further discussed risk/benefit of
cisplatin/immunotherapy with palliative intent treatment outpatient upon hospital discharge vs comfort focused goals/hospice in the setting of severe disease and liver failure. She is unsure if she would like to purse palliative or comfort focused
options so would like an OP follow up to discuss further. I will arrange close follow up to continue GOC.
follow up paracentesis cytology. We will arrange for OP paracentesis prn if needed
reasonable to transition heparin gtt to apixaban 2.5mg BID due to bland thrombus in the portal vein and risk of bleeding on higher doses of DOAC due to liver dysfunction
Subjective/Objective
Subjective
no new complaints
Vital Signs:
Vital Signs
Temp Pulse Resp BP Pulse Ox
97.4 F 95 18 107/68 100
03/07/25 07:47 03/07/25 07:47 03/07/25 07:47 03/07/25 07:55 03/07/25 07:47
Lab Results:
Laboratory Data
WBC 16.4 10^3/uL (4.8-10.8) H 03/07/25 02:20
Hgb 10.5 g/dL (12.0-16.0) L 03/07/25 02:20
Plt Count 132 10^3/uL (130-400) 03/07/25 02:20
PT 18.2 Sec (11.4-14.6) H 03/05/25 12:50
INR 1.45 03/05/25 12:50
APTT 113.1 Sec (23.4-35.0) H 03/07/25 02:20
eGFR 51.82 03/07/25 02:20
Physical Exam
HEENT: Jaundice

Documented by User: Arya Fu MD 03/07/25 13:08
Plan
Plan
preliminary path reported by pathology shows adenocarcinoma reviewed with patient and 03/[address] Sahu with c/f cholangiocarcinoma, pancreatic, or upper GI tract stage IV malignancy. Dr. Sahu further discussed risk/benefit of
cisplatin/immunotherapy with palliative intent treatment outpatient upon hospital discharge vs comfort focused goals/hospice in the setting of severe disease and liver failure. She is unsure if she would like to purse palliative or comfort focused
options so would like an OP follow up to discuss further. I will arrange close follow up to continue GOC.
follow up paracentesis cytology. We will arrange for OP paracentesis prn if needed
reasonable to transition heparin gtt to apixaban 2.5mg BID due to bland thrombus in the portal vein and risk of bleeding on higher doses of DOAC due to liver dysfunction
Oncology Addendum:
Patient seen and evaluated and agree w/ [employer] note and plan
-as per discussions yesterday between patient and Dr. Sahu - consideration is being given to palliative treatment as oupt
-pt has appointment this coming week to discuss potential options in more detail
F/u outpt
[2025-03-07 09:29] LABS: APTT 81.7 Sec (23.4-35.0)
--- NOTE | 2025-03-07 10:52 | W.PN.NEPH.PH ---
Today's Communication / Plan
-
follow BMP
Assessment/Plan
-
59-year-old female past medical history of diabetes and rheumatoid arthritis who presents with 1 month of painless jaundice and new onset lower extremity edema and ascites. She has had multiple imaging done no obstructive mass. She has some
ascites but not enough for paracentesis. They were unable to find the lesion to perform the liver biopsy.
Renal consult obtained for acute kidney injury with normal renal function on admission has increased to 1.5.
She has a very poor effective arterial blood volume as she was getting diuretics which have been held she is anasarcic.
Impression.
Acute kidney injury with a creatinine of 1.5 from 0.9 on admission.
Cirrhosis
Jaundice
Mass with portal vein obstruction
Rheumatoid arthritis
Plan:
has PICC
chemo arrangements
pt is planning on seeking 2nd opinion
follow BMP
continue midodrine
complete IV albumin course
-
-
Date of Service: March 07, 2025
CC / HPI / ROS
-
Chief Complaint:
CRISTIAN
History of Present Illness:
CRISTIAN/Cr stable 1.2
BP stable on midodrine
bili up to 27.3
Review of Systems:
no CP/SOB
no dysuria
Labs
-
Labs:
WBC 16.4 10^3/uL (4.8-10.8) H 03/07/25 02:20
RBC 3.29 10^6/uL (4.20-5.40) L 03/07/25 02:20
Hgb 10.5 g/dL (12.0-16.0) L 03/07/25 02:20
Hct 29.7 % (37.0-47.0) L 03/07/25 02:20
Plt Count 132 10^3/uL (130-400) 03/07/25 02:20
Sodium 134 mmol/L (135-145) L 03/07/25 02:20
Potassium 4.5 mmol/L (3.5-5.1) 03/07/25 02:20
Chloride 101 mmol/L (98-107) 03/07/25 02:20
Carbon Dioxide 22 mmol/L (22-30) 03/07/25 02:20
BUN 73 mg/dl (7-17) H 03/07/25 02:20
Creatinine 1.2 mg/dL (0.6-1.0) H 03/07/25 02:20
eGFR 51.82 03/07/25 02:20
Glucose 86 mg/dl (70-99) 03/07/25 02:20
Calcium 9.1 mg/dl (8.4-10.2) 03/07/25 02:20
Qfr-B-Blomvzmjygk Pept 327 pg/ml 02/26/25 08:21
Albumin 3.7 g/dl (3.5-5.0) 03/07/25 02:20
Physical Exam
-
Vital Signs:
Vital Signs
Temp Pulse Resp BP Pulse Ox
97.4 F 95 18 107/68 100
03/07/25 07:47 03/07/25 07:47 03/07/25 07:47 03/07/25 07:55 03/07/25 07:47
Cardiovascular:: Regular rate and rhythm
Respiratory:: Bilateral: Coarse
Lung Excursion:: Normal
Abdomen:: Nontender and Soft
Bowel Sounds:: Normal
Extremity Edema:: +1: Bilateral:
Other Findings::
jaundice
[2025-03-07 12:13] LABS: INR 1.61; PT 19.3 Sec (11.4-14.6)
[2025-03-07 12:16] LABS: Glucose - Point of Care 261 mg/dl (70-99)
--- NOTE | 2025-03-07 12:45 | W.PN.HOSP.TC ---
Today's Communication/Plan
-
dc to home
Assessment / Plan
Assessment / Plan
Assessment:
Obstructive jaundice with compressive hepatic mass
- Concern for neoplastic biliary obstruction; likely hepatocellular carcinoma with AFP levels very high, CEA near ULN
- Presented with scleral icterus and jaundice; T. bili 15.6, T. bili 13, ALP 495, AST 161, ALT 81, INR 1.34, albumin 3.1 - trend labs daily
- Had recent outpatient ultrasound and MRCP that demonstrated concerning findings for obstruction/malignancy.
- CT A/P with infiltrative mass of central liver, 5.9 x 4.5 cm, with lesion in the inferior left hepatic lobe, splenomegaly, small ascites
- s/p IR guided paracentesis and liver biopsy 03/04. Follow path - verbally reported as either pancreatic vs biliary vs gastrointestinal adenocarcinoma. Final report pending.
- No dilated ducts amenable to ERCP or PTBD per IR and GI
high-grade bland thrombus with near complete occlusion of the portal vein and central right portal vein. Persistent occlusion of the left portal vein.
- discussed with Oncology service; continue Eliquis as 2.5mg BID
Portal venous gas
- likely related to recent Liver biopsy; reviewed with IR
Small, 8mm focus of T1 hyperintensity near the radha hepatis, possibly reflecting hemorrhage
- review with IR, likely tumor related hemorrhage. Biopsy was performed at inferior L lobe mass
Mild prerenal CRISTIAN
- Secondary to Lasix 20 mg and ARB, in context of left portal vein compression and reduced circulatory state
- It did improve her edema however creatinine bumped from 1.0-1.3-1.5 as of BMP 03/02
- No further doses of Lasix given; remains with good urine output; blood pressure soft. Continue Albumin and Midodrine.
- No signs or symptoms of urinary obstruction
- Nephrology following
Bilateral lower extremity edema
Left portal vein compression
- Has bilateral lower extremity edema secondary to extrinsic compression of left portal vein by liver mass
- Lower extremity ultrasound negative for DVTs; echocardiogram without signs of cardiomyopathy
- Will need primary intervention into her liver mass once etiology is known
- Encourage compression stockings and leg elevation while resting
- Mild CRISTIAN with low-dose oral Lasix, avoid further diuresis
Rheumatoid arthritis
- Home regimen includes etanercept; per GI was recently switched to leflunomide
- No known associations such as CAD or interstitial lung disease
- No evidence of RA flare at this time
Primary hypertension
- No known history of hypertensive systemic disease
- Home regimen includes losartan 50 mg daily; held for CRISTIAN
- Blood pressure currently adequate on Midodrine
- Will continue to monitor
NIDDM
- No recent A1c; no known history of microvascular disease complication
- Diet controlled, does not appear to be on any home medications
- Blood sugars here have been slightly elevated though stable at other times
- Currently on ISS with Accu-Cheks
Thrombocytopenia
- monitor
Code: Full
More than 30 minutes spent in discharge including
Final examination of the patient
Summarizing hospital stay
Instructions for continuing care to all relevant caregivers
Preparation of discharge records, prescriptions, and referral forms
Total time spent (in minutes):41
Anticipated Discharge: Today
Subjective/Interval History
-
Date of Service: March 07, 2025
no new complaints at present
Objective Data
-
Labs:
Laboratory Results
03/07/25 03/07/25 03/07/25
02:20 09:02 12:02
WBC 16.4 H
Hgb 10.5 L
Hct 29.7 L
Plt Count 132
PT 19.3 H Cancelled
INR 1.61 Cancelled
APTT 113.1 H 81.7 H
Sodium 134 L
Potassium 4.5
Chloride 101
Carbon Dioxide 22
BUN 73 H
Creatinine 1.2 H
Glucose 86
Calcium 9.1
Total Bilirubin 27.3 H*
AST 118 H
ALT 65 H
Alkaline Phosphatase 391 H
Vital Signs:
Vital Signs
Temp Pulse Resp BP Pulse Ox
97.4 F 95 18 107/68 100
03/07/25 07:47 03/07/25 07:47 03/07/25 07:47 03/07/25 07:55 03/07/25 07:47
I&O
03/06/25 03/07/25 03/08/25
06:59 06:59 06:59
Intake Total 1200 / 1200 1520 / 1520
Balance 1200 / 1200 1520 / 1520
Physical Exam
-
General: No Apparent Distress
HEENT: Normocephalic and Atraumatic
Respiratory: Negative Wheezes
Cardiac: Regular Rhythm and S1/S2
GI: Soft and Nontender
Genito-urinary: No Costovertebral Tender
Neuro: AO x 3
Psych: Calm
Data Reviewed
-
Total Time Spent with Patient (in minutes): 42
Labs: Labs Reviewed by me
--- NOTE | 2025-03-07 12:52 | W.DS.TRANS ---
DC Summary - [facility]
-
Discharge Instructions:
Discharge Diagnosis/Procedures adenocarcinoma (bile vs pancreas vs
gastrointenstinal) with obstruction of bile
ducts in liver, portal vein thrombus
Diet Regular,Supplements
Activity As tolerated
Bathing Restrictions None
Instructions:
Stand-Alone Forms:
Changes to Home Medications: No
Discharge Medications:
DC Medications w/original date entered in [employer]
cholecalciferol (vitamin D3) 50 mcg (2,000 unit) tablet (Vitamin D3) 50 mcg PO DAILY Supplement 02/25/25
etanercept 50 mg/mL (1 mL) subcutaneous pen injector (Enbrel SureClick) 50 mg SC ZIMMERMAN rheumatoid arthritis 02/25/25
therapeutic multivitamin 1 tab PO DAILY Supplement 02/25/25
acetaminophen 325 mg tablet 650 mg (2 x 325 mg) PO Q4HPRN PRN mild pain/FLORES/temp> 100.4F #60 tabs 03/07/25
apixaban 2.5 mg tablet (Eliquis) 2.5 mg PO BID #60 tabs 03/07/25
glipizide 5 mg tablet 5 mg PO DAILY #30 tabs 03/07/25
midodrine 5 mg tablet 5 mg PO TID@0800,1300,1600 #90 tabs 03/07/25
ondansetron 4 mg disintegrating tablet 4 mg PO Q6H PRN nausea and vomiting #30 tabs 03/07/25
oxycodone 5 mg tablet 5 mg PO Q4HPRN PRN moderate pain #20 tabs 03/07/25
Home Medication Changes
Pending Results: No
Total time spent discharging patient (in min): 41
[2025-03-07 14:11] VITALS: BP 109/67
[2025-03-07] MEDS: NOVOLOG FLEXPEN-LOW RESISTANCE 3 UNITS SC (14:12)
== END 2025-03-07 15:27 | disposition home or self-care (01) | DRG 444 ==
LOC: 3 WEST ACU 20:36
PROVIDERS: Internal Medicine; Internal Medicine Hematology & Oncology; Nurse Practitioner Adult Health; Radiology Vascular & Interventional Radiology; Specialist; ADMITTING PHYSICIAN Internal Medicine; ATTENDING PHYSICIAN Internal Medicine; CONSULT PHYSICIAN Internal Medicine Nephrology; EMERGENCY PHYSICIAN Emergency Medicine; FAMILY PHYSICIAN Family Medicine; OTHER PHYSICIAN Internal Medicine; OTHER PHYSICIAN Internal Medicine Hematology & Oncology
PROC: 0FB23ZX Excision of Left Lobe Liver, Percutaneous Approach, Diagnostic (ICD-10-PCS; 2025-03-04)
PROC: 0W9G3ZZ Drainage of Peritoneal Cavity, Percutaneous Approach (ICD-10-PCS; 2025-03-04)
PROC: 02HV33Z Insertion of Infusion Device into Superior Vena Cava, Percutaneous Approach (ICD-10-PCS; 2025-03-06)
PROC: B548ZZA Ultrasonography of Superior Vena Cava, Guidance (ICD-10-PCS; 2025-03-06)
DX: K83.1 Obstruction of bile duct (principal); I81 Portal vein thrombosis; K76.7 Hepatorenal syndrome; C22.0 Liver cell carcinoma; R18.8 Other ascites; N17.9 Acute kidney failure, unspecified; I87.1 Compression of vein; K76.6 Portal hypertension; M06.9 Rheumatoid arthritis, unspecified; I10 Essential (primary) hypertension; E11.649 Type 2 diabetes mellitus with hypoglycemia without coma; E78.00 Pure hypercholesterolemia, unspecified; E88.09 Other disorders of plasma-protein metabolism, not elsewhere classified; D69.6 Thrombocytopenia, unspecified; K59.00 Constipation, unspecified; K74.60 Unspecified cirrhosis of liver; Z79.899 Other long term (current) drug therapy
CPT/HCPCS: 88305; 88307; 47000; 49083; 71045; 71250; 74177; 74183; 76705; 77012; 80053; 81003; 81015; 82042; 82105; 82140; 82150; 82248; 82378; 82570; 82962; 83036; 83615; 83690; 83735; 83880; 84156; 84157; 84300; 84443; 85025; 85027; 85384; 85610; 85730; 86704; 86705; 86706; 86803; 87015; 87070; 87086; 87205; 87340; 88112; 88333; 88341; 88342; 89051; 93306; 93971; 99152; 99153; 99285; A9575; P9047; Q9967